=== PATIENT | female | born 1975 | race Caucasian/White ===

== ENCOUNTER → 2016-10-25 | Outpatient (CLI) | payer BC | END | disposition home or self-care (01) | LOC: LABWHC1 11:01 | PROVIDERS: ATTEND Internal Medicine Endocrinology, Diabetes & Metabolism | DX: E04.2 Nontoxic multinodular goiter (principal) | CPT/HCPCS: 36415; 84439; 84443 ==

== ENCOUNTER 2019-03-08 11:20 | Emergency (ER) | payer BC, OTHER ==
[2019-03-08 11:27] VITALS: RESP 18
[2019-03-08] MEDS ORDERED: ONDANSETRON 4 MG/2 ML VIAL IVP STA (11:39)
[2019-03-08] MEDS ORDERED: SODIUM CHLORIDE 0.9% 1,000 ML IV STA (11:39)
[2019-03-08] MEDS ORDERED: KETOROLAC 30 MG/ML 1 ML VIAL IVP STA (11:39)
--- NOTE | 2019-03-08 11:54 | ED ---
Abdominal Pain HPI - General Source: patient, family Mode of arrival: wheelchair Limitations: no limitations <Neelam Pickens - Last Filed: 03/08/19 15:31> <Kena Cruz - Last Filed: 03/11/19 02:52> - General Chief Complaint: Abdominal Pain Stated Complaint: Abd Pain Time Seen by Provider: 03/08/19 11:31 - History of Present Illness Initial Comments: Patient is a 44-year-old female presenting to the emergency Department with complaints of abdominal pain, nausea, vomiting since early this morning. Patient states she has a history of gastritis but has not had issues with her for approximately 5 years. Patient states she takes pain medication for chronic back pain. Patient states he woke up early this morning with abdominal pain as well as vomiting. Patient describes the abdominal pain as sharp and constant just below the diaphragm. Patient states this feels exactly like the last time she had a gastritis attack. Patient admits to being under increased amount of stress recently. Patient denies fever, chills, chest pain, shortness of breath, cough, urinary complaints. Upon arrival to ER. Patient is actively vomiting. Vital signs are stable, afebrile. (Neelam Pickens) - Related Data Home Medications Medication Instructions Recorded Confirmed Cephalexin [Keflex] 500 mg PO Q8HR 07/06/14 07/06/14 Methocarbamol [Robaxin] 750 mg PO QID 07/06/14 07/06/14 oxyCODONE-APAP 10-325MG [Percocet 1 each PO Q6HR PRN 07/06/14 07/06/14 10-325] Previous Rx's Medication Instructions Recorded Famotidine [Pepcid] 20 mg PO BID #30 tablet 07/06/14 Famotidine [Pepcid] 20 mg PO BID #28 tablet 10/07/14 Cephalexin [Keflex] 500 mg PO BID 7 Days #14 cap 03/08/19 Allergies Allergy/AdvReac Type Severity Reaction Status Date / Time acetaminophen [From [place]] AdvReac Nausea & Verified 03/08/19 11:22 Vomiting hydrocodone bitartrate AdvReac Nausea & Verified 03/08/19 11:22 [From [place]] Vomiting Review of Systems ROS Other: All systems not noted in ROS Statement are negative. <Neelam Pickens - Last Filed: 03/08/19 15:31> ROS Other: All systems not noted in ROS Statement are negative. <Kena Cruz - Last Filed: 03/11/19 02:52> ROS Statement: Those systems with pertinent positive or pertinent negative responses have been documented in the HPI. Past Medical History Additional Past Medical History / Comment(s): Chronic back pain, gastritis History of Any Multi-Drug Resistant Organisms: None Reported Past Surgical History: Back Surgery, Orthopedic Surgery Additional Past Surgical History / Comment(s): Neurostimulator for back pain Past Psychological History: No Psychological Hx Reported Smoking Status: Current every day smoker Past Alcohol Use History: Rare Past Drug Use History: Marijuana <Neelam Pickens - Last Filed: 03/08/19 15:31> General Exam Limitations: no limitations <Neelam Pickens - Last Filed: 03/08/19 15:31> - General Exam Comments Initial Comments: GENERAL: Well-nourished and in mild distress secondary to acute pain and vomiting. HEAD: Atraumatic, normocephalic. EYES: Pupils equal round and reactive to light, extraocular movements intact, sclera anicteric, conjunctiva are normal. ENT: TMs normal, nares patent, oropharynx clear without exudates. Moist mucous membranes. NECK: Normal range of motion, supple without lymphadenopathy or JVD. LUNGS: Breath sounds clear to auscultation bilaterally and equal. No wheezes rales or rhonchi. HEART: Regular rate and rhythm without murmurs, rubs or gallops. ABDOMEN: Tender to palpation in epigastric region. Soft, normoactive bowel sounds. No guarding, no rebound. No masses appreciated. : Deferred EXTREMITIES: Normal range of motion, no pitting or edema. No clubbing or cyanosis. NEUROLOGICAL: Cranial nerves II through XII grossly intact. Normal speech, normal gait. PSYCH: Normal mood, normal affect. SKIN: Warm, Dry, normal turgor, no rashes or lesions noted. (Neelam Pickens) Course Vital Signs 03/08/19 03/08/19 11:25 14:25 Temperature 97.6 F 98 F Pulse Rate 59 L 54 L Respiratory 18 18 Rate Blood Pressure 176/77 177/79 O2 Sat by Pulse 100 100 Oximetry Medical Decision Making - Lab Data Result diagrams: 03/08/19 11:55 03/08/19 11:55 <Neelam Pickens - Last Filed: 03/08/19 15:31> - Lab Data Result diagrams: 03/08/19 11:55 03/08/19 11:55 <Kena Cruz - Last Filed: 03/11/19 02:52> - Medical Decision Making Patient is a 44-year-old female here for epigastric pain that started early this morning. Patient has a history of gastritis and she states this feels exactly to the same as last time she had gastritis. Patient admits to being under a large amount of stress recently. Patient denies fever, chills, diarrhea, chest pain, shortness of breath, cough. Patient was actively vomiting upon arrival to ER. Vital signs are stable. On exam patient has tenderness epigastric region. CBC, CMP are within normal limits. Lactic acid is 1.6. UA does reveal large amount of WBCs and 2+ ketones. Upon questioning the patient again regarding urinary complaints she does admit to having increased in frequency the last week. Patient was given fluids, pain medication, Protonix and she reports improvement in symptoms. Patient is requesting to go home. Patient will be started on Keflex for UTI. Patient will follow up with GI for further management if symptoms persist. Return parameters were discussed with the patient she verbalized understanding. Patient is stable for discharge. Case discussed with Dr. Cruz. (Neelam Pickens) I was available for consultation in the emergency department. The history and physical exam were done by the midlevel provider. I was consulted for this patient's care. I reviewed the case midlevel provider and based on their presentation of the patient, I agree with the assessment, medical decision making and plan of care as documented. I did evaluate the patient prior to discharge and she agreed to improvement in her symptoms. Chart was dictated using [employer] software. Attempts were made to correct any dictation errors however some typographical errors may persist. (Kena Cruz) - Lab Data Lab Results 03/08/19 03/08/19 03/08/19 Range/Units 11:55 11:55 11:55 WBC (3.8-10.6) k/uL RBC (3.80-5.40) m/uL Hgb (11.4-16.0) gm/dL Hct (34.0-46.0) % MCV (80.0-100.0) fL MCH (25.0-35.0) pg MCHC (31.0-37.0) g/dL RDW (11.5-15.5) % Plt Count (150-450) k/uL Neutrophils % % Lymphocytes % % Monocytes % % Eosinophils % % Basophils % % Neutrophils # (1.3-7.7) k/uL Lymphocytes # (1.0-4.8) k/uL Monocytes # (0-1.0) k/uL Eosinophils # (0-0.7) k/uL Basophils # (0-0.2) k/uL Sodium 140 (137-145) mmol/L Potassium 4.2 (3.5-5.1) mmol/L Chloride 106 (98-107) mmol/L Carbon Dioxide 22 (22-30) mmol/L Anion Gap 12 mmol/L BUN 14 (7-17) mg/dL Creatinine 0.65 (0.52-1.04) mg/dL Est GFR (CKD-EPI)AfAm >90 (>60 ml/min/1.73 sqM) Est GFR (CKD-EPI)NonAf >90 (>60 ml/min/1.73 sqM) Glucose 144 H (74-99) mg/dL Plasma Lactic Acid [place] 1.6 (0.7-2.0) mmol/L Calcium 9.3 (8.4-10.2) mg/dL Total Bilirubin 0.7 (0.2-1.3) mg/dL AST 18 (14-36) U/L ALT 17 (9-52) U/L Alkaline Phosphatase 48 (38-126) U/L Total Protein 7.3 (6.3-8.2) g/dL Albumin 4.4 (3.5-5.0) g/dL Amylase 54 (30-110) U/L Lipase 41 (23-300) U/L Urine Color Yellow Urine Appearance Cloudy H (Clear) Urine pH 7.5 (5.0-8.0) Ur Specific [place] 1.015 (1.001-1.035) Urine Protein Trace H (Negative) Urine Glucose (UA) Negative (Negative) Urine Ketones 2+ H (Negative) Urine Blood Trace H (Negative) Urine Nitrite Negative (Negative) Urine Bilirubin Negative (Negative) Urine Urobilinogen <2.0 (<2.0) mg/dL Ur Leukocyte Esterase Large H (Negative) Urine RBC 3 (0-5) /hpf Urine WBC >182 H (0-5) /hpf Ur Squamous Epith Cells 1 (0-4) /hpf Urine Bacteria Rare H (None) /hpf Urine Mucus Few H (None) /hpf Urine HCG, Qual (Not Detectd) 03/08/19 03/08/19 Range/Units 11:55 11:55 WBC 9.5 (3.8-10.6) k/uL RBC 3.89 (3.80-5.40) m/uL Hgb 11.9 (11.4-16.0) gm/dL Hct 36.3 (34.0-46.0) % MCV 93.1 (80.0-100.0) fL MCH 30.6 (25.0-35.0) pg MCHC 32.8 (31.0-37.0) g/dL RDW 14.7 (11.5-15.5) % Plt Count 215 (150-450) k/uL Neutrophils % 89 % Lymphocytes % 7 % Monocytes % 2 % Eosinophils % 1 % Basophils % 0 % Neutrophils # 8.5 H (1.3-7.7) k/uL Lymphocytes # 0.7 L (1.0-4.8) k/uL Monocytes # 0.2 (0-1.0) k/uL Eosinophils # 0.1 (0-0.7) k/uL Basophils # 0.0 (0-0.2) k/uL Sodium (137-145) mmol/L Potassium (3.5-5.1) mmol/L Chloride (98-107) mmol/L Carbon Dioxide (22-30) mmol/L Anion Gap mmol/L BUN (7-17) mg/dL Creatinine (0.52-1.04) mg/dL Est GFR (CKD-EPI)AfAm (>60 ml/min/1.73 sqM) Est GFR (CKD-EPI)NonAf (>60 ml/min/1.73 sqM) Glucose (74-99) mg/dL Plasma Lactic Acid [place] (0.7-2.0) mmol/L Calcium (8.4-10.2) mg/dL Total Bilirubin (0.2-1.3) mg/dL AST (14-36) U/L ALT (9-52) U/L Alkaline Phosphatase (38-126) U/L Total Protein (6.3-8.2) g/dL Albumin (3.5-5.0) g/dL Amylase (30-110) U/L Lipase (23-300) U/L Urine Color Urine Appearance (Clear) Urine pH (5.0-8.0) Ur Specific [place] (1.001-1.035) Urine Protein (Negative) Urine Glucose (UA) (Negative) Urine Ketones (Negative) Urine Blood (Negative) Urine Nitrite (Negative) Urine Bilirubin (Negative) Urine Urobilinogen (<2.0) mg/dL Ur Leukocyte Esterase (Negative) Urine RBC (0-5) /hpf Urine WBC (0-5) /hpf Ur Squamous Epith Cells (0-4) /hpf Urine Bacteria (None) /hpf Urine Mucus (None) /hpf Urine HCG, Qual Not Detected (Not Detectd) Disposition Is patient prescribed a controlled substance at d/c from ED?: No <Neelam Pickens - Last Filed: 03/08/19 15:31> <Kena Cruz - Last Filed: 03/11/19 02:52> Clinical Impression: Abdominal pain, Gastritis, Vomiting, UTI (urinary tract infection) Disposition: HOME SELF-CARE Condition: Stable Instructions (If sedation given, give patient instructions): Abdominal Pain (ED) Additional Instructions: Please return to the Emergency Department if symptoms worsen or any other concerns. with an acid in Zofran as needed. Take antibiotics as discussed for UTI. Follow-up with GI if symptoms persist. Prescriptions: Cephalexin [Keflex] 500 mg PO BID 7 Days #14 cap Referrals: None,Stated [Primary Care Provider] - 1-2 days
[2019-03-08] MEDS ORDERED: PANTOPRAZOLE 40 MG/10 ML VIAL IVP STA (12:18)
[2019-03-08] MEDS ORDERED: MAG HYDROX/AL HYDROX/SIMETH 30 ML, HYOSCYAMINE ELIXIR 10 ML, CIMETIDINE HCL 300 MG, LID... PO STA ×4 (12:18)
[2019-03-08 12:23] LABS: Basophils % (A) 0 %; Eosinophils # (A) 0.1 k/uL (0-0.7); Eosinophils % (A) 1 %; HCT 36.3 % (34.0-46.0); HGB 11.9 gm/dL (11.4-16.0); Lymphocytes # (A) 0.7 k/uL (1.0-4.8); Lymphocytes % (A) 7 %; MCH 30.6 pg (25.0-35.0); MCHC 32.8 g/dL (31.0-37.0); MCV 93.1 fL (80.0-100.0); Mean Platelet Volume 9.3; Monocytes # (A) 0.2 k/uL (0-1.0); Monocytes % (A) 2 %; Neutrophils # (A) 8.5 k/uL (1.3-7.7); Neutrophils % (A) 89 %; Platelet Count 215 k/uL (150-450); RBC 3.89 m/uL (3.80-5.40); RDW 14.7 % (11.5-15.5); WBC 9.5 k/uL (3.8-10.6)
[2019-03-08 12:29] LABS: Appearance,Urine Cloudy (Clear); Bacteria,Urine Rare /hpf; Bilirubin,Urine Negative (Negative); Blood,Urine Trace (Negative); Color,Urine Yellow; Glucose,Urine (UA) Negative (Negative); Ketones,Urine 2+ (Negative); Leukocyte Esterase,Urine Large (Negative); Mucus,Urine Few /hpf; Nitrite,Urine Negative (Negative); PH, Urine 7.5 (5.0-8.0); Protein,Urine Trace (Negative); RBC,Urine 3 /hpf (0-5); Specific Gravity,Urine 1.015 (1.001-1.035); Squamous Epithelial Cell,Urine 1 /hpf (0-4); Urobilinogen,Urine <2.0 mg/dL (<2.0)
[2019-03-08 12:32] LABS: ALT 17 U/L (9-52); AST 18 U/L (14-36); African American GFR (CKD) >90 (>60 ml/min/1.73 sqM); Albumin 4.4 g/dL (3.5-5.0); Alkaline Phosphatase 48 U/L (38-126); Amylase 54 U/L (30-110); Anion Gap 12 mmol/L; Blood Urea Nitrogen 14 mg/dL (7-17); Calcium 9.3 mg/dL (8.4-10.2); Carbon Dioxide 22 mmol/L (22-30); Chloride 106 mmol/L (98-107); Glucose 144 mg/dL (74-99); Potassium 4.2 mmol/L (3.5-5.1); Sodium 140 mmol/L (137-145); Total Bilirubin 0.7 mg/dL (0.2-1.3); Total Protein 7.3 g/dL (6.3-8.2)
[2019-03-08] MEDS ORDERED: MORPHINE SULFATE 4 MG/ML SYRINGE IVP STA (12:53)
[2019-03-08 14:26] VITALS: BP 177/79; PULSE 54; TEMP 98
== END 2019-03-08 14:26 | disposition home or self-care (01) ==
LOC: EC 11:20
DX: N39.0 Urinary tract infection, site not specified (principal); K29.70 Gastritis, unspecified, without bleeding; F17.200 Nicotine dependence, unspecified, uncomplicated; Z79.899 Other long term (current) drug therapy; Z88.5 Allergy status to narcotic agent; Z88.6 Allergy status to analgesic agent
CPT/HCPCS: 36415; 80053; 82150; 83605; 83690; 85025; 81001; 81025; 87086; 99284; 96374; 96375 ×3; 96361; J2270; J2405; J1885; C9113

== ENCOUNTER 2019-06-23 09:31 | Emergency (ER) | payer OTHER ==
[2019-06-23 09:52] VITALS: BP 157/67; PULSE 81; RESP 18; TEMP 97.8
[2019-06-23] MEDS ORDERED: SODIUM CHLORIDE 0.9% 1,000 ML IV STA (10:07)
[2019-06-23] MEDS ORDERED: ONDANSETRON 4 MG/2 ML VIAL IVP STA ×2 (10:07→11:59)
[2019-06-23] MEDS ORDERED: MORPHINE SULFATE 4 MG/ML SYRINGE IV STA (10:07)
[2019-06-23] MEDS ORDERED: PANTOPRAZOLE 40 MG/10 ML VIAL IVP STA (10:07)
[2019-06-23] MEDS ORDERED: MAG HYDROX/AL HYDROX/SIMETH 30 ML, HYOSCYAMINE ELIXIR 10 ML, LIDOCAINE VISCOUS 2% 10 ML PO STA ×3 (10:09)
--- NOTE | 2019-06-23 10:20 | ED ---
Abdominal Pain HPI - General Chief Complaint: Abdominal Pain Stated Complaint: abdominal pain Time Seen by Provider: 06/23/19 09:54 Source: patient Mode of arrival: ambulatory Limitations: no limitations - History of Present Illness Initial Comments: patient is a 44-year-old female presenting to emergency Department with complaints of abdominal pain this started yesterday. Patient is complaining of nausea, vomiting and severe epigastric pain. Patient states she has had this kind of pain before and has a history of gastritis. she describes the pain as sharp and consistent. No radiation. Patient states she will have her insurance back after the first year and plans to have surgery to correct this. Patient was in the ER in February for same complaint.she only has these attacks once or twice a year. Patient denies fever or chills. She does have mild diarrhea. Patient denies chest pain or shortness of breath. Patient has no other complain ts at this time. Upon arrival to the ER, patient has been vomiting in her room, vital signs are stable. - Related Data Home Medications Medication Instructions Recorded Confirmed Ibuprofen 800 mg PO TID 06/23/19 06/23/19 Allergies Allergy/AdvReac Type Severity Reaction Status Date / Time acetaminophen [From [place]] AdvReac Nausea & Verified 03/08/19 11:22 Vomiting hydrocodone bitartrate AdvReac Nausea & Verified 03/08/19 11:22 [From [place]] Vomiting Review of Systems ROS Statement: Those systems with pertinent positive or pertinent negative responses have been documented in the HPI. ROS Other: All systems not noted in ROS Statement are negative. Past Medical History Additional Past Medical History / Comment(s): Chronic back pain, gastritis History of Any Multi-Drug Resistant Organisms: None Reported Past Surgical History: Back Surgery, Orthopedic Surgery Additional Past Surgical History / Comment(s): Neurostimulator for back pain Past Psychological History: No Psychological Hx Reported Smoking Status: Current every day smoker Past Alcohol Use History: Rare Past Drug Use History: Marijuana General Exam - General Exam Comments Initial Comments: GENERAL: Well-appearing, well-nourished and in mild distress secondary to abdominal pain and vomiting. HEAD: Atraumatic, normocephalic. EYES: Pupils equal round and reactive to light, extraocular movements intact, sclera anicteric, conjunctiva are normal. ENT: Nares patent, oropharynx clear without exudates. Moist mucous membranes. NECK: Normal range of motion, supple without lymphadenopathy or JVD. LUNGS: Breath sounds clear to auscultation bilaterally and equal. No wheezes rales or rhonchi. HEART: Regular rate and rhythm without murmurs, rubs or gallops. ABDOMEN: tender to palpation epigastric region and suprapubic. Soft, normoactive bowel sounds. No guarding, no rebound. No masses appreciated. : Deferred EXTREMITIES: Normal range of motion, no pitting or edema. No clubbing or cyanosis. NEUROLOGICAL: Normal speech, normal gait. PSYCH: Normal mood, normal affect. SKIN: Warm, Dry, normal turgor, no rashes or lesions noted. Limitations: no limitations Course Vital Signs 06/23/19 09:49 Temperature 97.8 F Pulse Rate 81 Respiratory 18 Rate Blood Pressure 157/67 O2 Sat by Pulse 100 Oximetry Medical Decision Making - Medical Decision Making she is a 44-year-old female presenting with epigastric pain that started yesterday. Patient has history of gastritis and has had this pain before. Laboratory shows leukocytosis at 16.9 with left shift. UA shows to be PVCs of 19 with small amount of blood. Given the leukocytosis and continued pain, a CT was ordered. CT showed mild to moderate left-sided hydro-nephrosis secondary to a large left UPJ calculus measuring 1.40.6 cm. I discussed these findings with the patient. Patient is feeling better after fluids, nausea meds and pain meds. Patient was given 1 g of Rocephin before discharge. She will continue with Keflex outpatient. Patient will follow up with her PCP. Patient is agreement this plan of care. Return parameters were discussed with the patient she v erbalized understanding. Case discussed with Dr. Nash. - Lab Data Result diagrams: 06/23/19 10:24 06/23/19 10:24 Lab Results 06/23/19 06/23/19 06/23/19 Range/Units 10:24 10:24 10:24 WBC 16.9 H (3.8-10.6) k/uL RBC 4.14 (3.80-5.40) m/uL Hgb 12.6 (11.4-16.0) gm/dL Hct 38.4 (34.0-46.0) % MCV 92.7 (80.0-100.0) fL MCH 30.5 (25.0-35.0) pg MCHC 32.9 (31.0-37.0) g/dL RDW 13.2 (11.5-15.5) % Plt Count 178 (150-450) k/uL Neutrophils % 93 % Lymphocytes % 4 % Monocytes % 1 % Eosinophils % 1 % Basophils % 0 % Neutrophils # 15.7 H (1.3-7.7) k/uL Lymphocytes # 0.7 L (1.0-4.8) k/uL Monocytes # 0.2 (0-1.0) k/uL Eosinophils # 0.2 (0-0.7) k/uL Basophils # 0.0 (0-0.2) k/uL PT 11.4 (9.0-12.0) sec INR 1.1 (<1.2) APTT 23.3 (22.0-30.0) sec Sodium 140 (137-145) mmol/L Potassium 4.2 (3.5-5.1) mmol/L Chloride 108 H (98-107) mmol/L Carbon Dioxide 23 (22-30) mmol/L Anion Gap 9 mmol/L BUN 18 H (7-17) mg/dL Creatinine 0.63 (0.52-1.04) mg/dL Est GFR (CKD-EPI)AfAm >90 (>60 ml/min/1.73 sqM) Est GFR (CKD-EPI)NonAf >90 (>60 ml/min/1.73 sqM) Glucose 143 H (74-99) mg/dL Calcium 9.4 (8.4-10.2) mg/dL Total Bilirubin 0.8 (0.2-1.3) mg/dL AST 20 (14-36) U/L ALT 15 (4-34) U/L Alkaline Phosphatase 47 (38-126) U/L Total Protein 7.3 (6.3-8.2) g/dL Albumin 4.4 (3.5-5.0) g/dL Amylase 44 (30-110) U/L Lipase 27 (23-300) U/L Urine Color Urine Appearance (Clear) Urine pH (5.0-8.0) Ur Specific [place] (1.001-1.035) Urine Protein (Negative) Urine Glucose (UA) (Negative) Urine Ketones (Negative) Urine Blood (Negative) Urine Nitrite (Negative) Urine Bilirubin (Negative) Urine Urobilinogen (<2.0) mg/dL Ur Leukocyte Esterase (Negative) Urine RBC (0-5) /hpf Urine WBC (0-5) /hpf Ur Squamous Epith Cells (0-4) /hpf Urine Bacteria (None) /hpf Hyaline Casts (0-2) /lpf Urine Mucus (None) /hpf Urine HCG, Qual (Not Detectd) 06/23/19 06/23/19 Range/Units 11:25 11:25 WBC (3.8-10.6) k/uL RBC (3.80-5.40) m/uL Hgb (11.4-16.0) gm/dL Hct (34.0-46.0) % MCV (80.0-100.0) fL MCH (25.0-35.0) pg MCHC (31.0-37.0) g/dL RDW (11.5-15.5) % Plt Count (150-450) k/uL Neutrophils % % Lymphocytes % % Monocytes % % Eosinophils % % Basophils % % Neutrophils # (1.3-7.7) k/uL Lymphocytes # (1.0-4.8) k/uL Monocytes # (0-1.0) k/uL Eosinophils # (0-0.7) k/uL Basophils # (0-0.2) k/uL PT (9.0-12.0) sec INR (<1.2) APTT (22.0-30.0) sec Sodium (137-145) mmol/L Potassium (3.5-5.1) mmol/L Chloride (98-107) mmol/L Carbon Dioxide (22-30) mmol/L Anion Gap mmol/L BUN (7-17) mg/dL Creatinine (0.52-1.04) mg/dL Est GFR (CKD-EPI)AfAm (>60 ml/min/1.73 sqM) Est GFR (CKD-EPI)NonAf (>60 ml/min/1.73 sqM) Glucose (74-99) mg/dL Calcium (8.4-10.2) mg/dL Total Bilirubin (0.2-1.3) mg/dL AST (14-36) U/L ALT (4-34) U/L Alkaline Phosphatase (38-126) U/L Total Protein (6.3-8.2) g/dL Albumin (3.5-5.0) g/dL Amylase (30-110) U/L Lipase (23-300) U/L Urine Color Yellow Urine Appearance Clear (Clear) Urine pH 7.0 (5.0-8.0) Ur Specific [place] 1.020 (1.001-1.035) Urine Protein 1+ H (Negative) Urine Glucose (UA) Negative (Negative) Urine Ketones Trace H (Negative) Urine Blood Negative (Negative) Urine Nitrite Negative (Negative) Urine Bilirubin Negative (Negative) Urine Urobilinogen <2.0 (<2.0) mg/dL Ur Leukocyte Esterase Small H (Negative) Urine RBC 11 H (0-5) /hpf Urine WBC 19 H (0-5) /hpf Ur Squamous Epith Cells <1 (0-4) /hpf Urine Bacteria Moderate H (None) /hpf Hyaline Casts 1 (0-2) /lpf Urine Mucus Moderate H (None) /hpf Urine HCG, Qual Not Detected (Not Detectd) Disposition Clinical Impression: Gastritis, Renal calculus, left Disposition: HOME SELF-CARE Condition: Stable Instructions (If sedation given, give patient instructions): Kidney Stones (ED) Additional Instructions: Please return to the Emergency Department if symptoms worsen or any other concerns. Take antibiotics as prescribed. Is patient prescribed a controlled substance at d/c from ED?: No Referrals: Clark Goncalves MD [Primary Care Provider] - 1-2 days
[2019-06-23 10:39] LABS: Basophils % (A) 0 %; Eosinophils # (A) 0.2 k/uL (0-0.7); Eosinophils % (A) 1 %; HCT 38.4 % (34.0-46.0); HGB 12.6 gm/dL (11.4-16.0); Lymphocytes # (A) 0.7 k/uL (1.0-4.8); Lymphocytes % (A) 4 %; MCH 30.5 pg (25.0-35.0); MCHC 32.9 g/dL (31.0-37.0); MCV 92.7 fL (80.0-100.0); Mean Platelet Volume 10.1; Monocytes # (A) 0.2 k/uL (0-1.0); Monocytes % (A) 1 %; Neutrophils # (A) 15.7 k/uL (1.3-7.7); Neutrophils % (A) 93 %; Platelet Count 178 k/uL (150-450); RBC 4.14 m/uL (3.80-5.40); RDW 13.2 % (11.5-15.5); WBC 16.9 k/uL (3.8-10.6)
[2019-06-23 11:00] LABS: ALT 15 U/L (4-34); AST 20 U/L (14-36); African American GFR (CKD) >90 (>60 ml/min/1.73 sqM); Albumin 4.4 g/dL (3.5-5.0); Alkaline Phosphatase 47 U/L (38-126); Amylase 44 U/L (30-110); Anion Gap 9 mmol/L; Blood Urea Nitrogen 18 mg/dL (7-17); Calcium 9.4 mg/dL (8.4-10.2); Carbon Dioxide 23 mmol/L (22-30); Chloride 108 mmol/L (98-107); Glucose 143 mg/dL (74-99); Non-African American GFR(CKD) >90 (>60 ml/min/1.73 sqM); Potassium 4.2 mmol/L (3.5-5.1); Sodium 140 mmol/L (137-145); Total Bilirubin 0.8 mg/dL (0.2-1.3); Total Protein 7.3 g/dL (6.3-8.2)
[2019-06-23 11:16] LABS: INR 1.1 (<1.2); Partial Thromboplastin Time 23.3 sec (22.0-30.0); Prothrombin Time 11.4 sec (9.0-12.0)
--- NOTE | 2019-06-23 12:08 | CT ---
EXAMINATION TYPE: CT abdomen pelvis w con DATE OF EXAM: 06/23/2019 COMPARISON: HISTORY: Abdominal pain CT DLP: 535.3 mGycm CONTRAST: CT scan of the abdomen and pelvis is performed without Oral Contrast and with IV Contrast, patient in jected with 100 ml mL of Isovue 300. FINDINGS: LUNG BASES-: No visible nodule. No infiltrate. LIVER/GB: No calcified gallstones. No space occupying hepatic lesion. Biliary tree is of normal ca liber. PANCREAS: No inflammation. No distinct mass. SPLEEN: No splenic enlargement. No lesion seen. ADRENALS: No nodule. No thickening. KIDNEYS/BLADDER: Mild to moderate left-sided hydroureteronephrosis secondary to a large calculus at t he left UVJ measuring 1.4 cm in length by 6 mm in width. No additional calculi identified at this jada e. No renal mass is detected. BOWEL: Normal appendix. Normal bowel caliber. No inflammation. GENITAL ORGANS: No gross abnormality. LYMPH NODES: No greater than 1cm abdominal or pelvic lymph nodes are appreciated. AORTA: No significant abnormality. OSSEOUS STRUCTURES: No significant abnormality is seen. OTHER: No significant additional abnormality is seen. IMPRESSION: 1. [id number] left-sided hydroureteronephrosis secondary to a large left UPJ calculus measuring 1.4 x 0.6 cm.
[2019-06-23 12:22] LABS: Appearance,Urine Clear (Clear); Bacteria,Urine Moderate /hpf; Bilirubin,Urine Negative (Negative); Blood,Urine Negative (Negative); Color,Urine Yellow; Glucose,Urine (UA) Negative (Negative); Hyaline Casts,Urine 1 /lpf (0-2); Ketones,Urine Trace (Negative); Leukocyte Esterase,Urine Small (Negative); Mucus,Urine Moderate /hpf; Nitrite,Urine Negative (Negative); Protein,Urine 1+ (Negative); RBC,Urine 11 /hpf (0-5); Squamous Epithelial Cell,Urine <1 /hpf (0-4); Urobilinogen,Urine <2.0 mg/dL (<2.0); WBC,Urine 19 /hpf (0-5)
[2019-06-23] MEDS ORDERED: cefTRIAXone IN SWFI 1,000 MG/10 ML SYRINGE IVP STA (12:33)
[2019-06-23] MEDS ORDERED: ACET/COD 300 MG/30 MG STARTER PACK 6 TAB BTL PO STA (12:34)
== END 2019-06-23 12:50 | disposition home or self-care (01) ==
LOC: EC 09:31
DX: K29.70 Gastritis, unspecified, without bleeding (principal); N13.2 Hydronephrosis with renal and ureteral calculous obstruction; D72.829 Elevated white blood cell count, unspecified; F17.200 Nicotine dependence, unspecified, uncomplicated; Z79.1 Long term (current) use of non-steroidal anti-inflammatories (NSAID); Z88.5 Allergy status to narcotic agent; Z88.6 Allergy status to analgesic agent
CPT/HCPCS: 36415; 80053; 82150; 83690; 85025; 85610; 85730; 81001; 81025; 87086; 74177; 99284; 96374; 96375 ×3; 96376; 96361 ×2; J2270; J2405; J0696; C9113; Q9967

== ENCOUNTER 2019-08-06 10:09 | Emergency (ER) | payer SELFPAY ==
[2019-08-06 10:23] VITALS: RESP 16; TEMP 97.4
[2019-08-06 11:32] LABS: Basophils % (A) 0 %; Eosinophils # (A) 0.1 k/uL (0-0.7); Eosinophils % (A) 0 %; Lymphocytes # (A) 0.9 k/uL (1.0-4.8); Lymphocytes % (A) 7 %; MCHC 31.7 g/dL (31.0-37.0); MCV 94.6 fL (80.0-100.0); Monocytes # (A) 0.2 k/uL (0-1.0); Monocytes % (A) 2 %; Neutrophils # (A) 10.8 k/uL (1.3-7.7); Neutrophils % (A) 90 %; Platelet Count 215 k/uL (150-450); RBC 4.34 m/uL (3.80-5.40)
[2019-08-06 11:44] LABS: ALT 13 U/L (4-34); AST 25 U/L (14-36); African American GFR (CKD) >90 (>60 ml/min/1.73 sqM); Albumin 4.4 g/dL (3.5-5.0); Alkaline Phosphatase 55 U/L (38-126); Amylase 60 U/L (30-110); Anion Gap 8 mmol/L; Blood Urea Nitrogen 17 mg/dL (7-17); Calcium 8.9 mg/dL (8.4-10.2); Carbon Dioxide 23 mmol/L (22-30); Chloride 107 mmol/L (98-107); Glucose 127 mg/dL (74-99); Non-African American GFR(CKD) >90 (>60 ml/min/1.73 sqM); Potassium 4.3 mmol/L (3.5-5.1); Sodium 138 mmol/L (137-145); Total Bilirubin 0.7 mg/dL (0.2-1.3); Total Protein 7.1 g/dL (6.3-8.2)
[2019-08-06 11:52] LABS: Appearance,Urine Cloudy (Clear); Bacteria,Urine Rare /hpf; Bilirubin,Urine Negative (Negative); Blood,Urine Moderate (Negative); Color,Urine Yellow; Glucose,Urine (UA) Negative (Negative); Ketones,Urine 1+ (Negative); Leukocyte Esterase,Urine Trace (Negative); Mucus,Urine Rare /hpf; Nitrite,Urine Negative (Negative); Protein,Urine 1+ (Negative); RBC,Urine 82 /hpf (0-5); Specific Gravity,Urine 1.019 (1.001-1.035); Squamous Epithelial Cell,Urine 9 /hpf (0-4); Urobilinogen,Urine <2.0 mg/dL (<2.0); WBC,Urine 8 /hpf (0-5)
[2019-08-06] MEDS ORDERED: ONDANSETRON 4 MG/2 ML VIAL IVP STA (12:01)
[2019-08-06] MEDS ORDERED: PANTOPRAZOLE 40 MG/10 ML VIAL IVP STA (12:02)
[2019-08-06] MEDS ORDERED: MORPHINE SULFATE 4 MG/ML SYRINGE IVP STA (12:03)
[2019-08-06] MEDS ORDERED: SODIUM CHLORIDE 0.9% 1,000 ML IV ONE (12:31)
--- NOTE | 2019-08-06 12:33 | ED ---
Abdominal Pain HPI - General Chief Complaint: Abdominal Pain Stated Complaint: Vomiting, abd pain Time Seen by Provider: 08/06/19 11:46 Source: patient, RN notes reviewed, old records reviewed Mode of arrival: wheelchair Limitations: no limitations - History of Present Illness Initial Comments: 44 year old female presents today for concerns for abdominal pain. Some gastritis nausea and vomiting. She states she's also had kidney stones. Patient reports she was diagnosed with large kidney stone but believes that she passed it already.She reports she will occasionallly get pain over left flank and left side. Recently she started having nausea nd vomiting for the past 3 days. - Related Data Home Medications Medication Instructions Recorded Confirmed Ibuprofen 800 mg PO TID 06/23/19 06/23/19 Previous Rx's Medication Instructions Recorded Ketorolac [Toradol] 10 mg PO TID #12 tab 08/06/19 Ondansetron [Zofran] 4 mg PO Q8HR PRN #8 tab 08/06/19 Pantoprazole Sodium [Protonix] 40 mg PO DAILY #40 tablet. 08/06/19 Tamsulosin HCl [Flomax] 0.4 mg PO DAILY #7 capsule 08/06/19 Allergies Allergy/AdvReac Type Severity Reaction Status Date / Time acetaminophen [From [place]] AdvReac Nausea & Verified 08/06/19 10:23 Vomiting hydrocodone bitartrate AdvReac Nausea & Verified 08/06/19 10:23 [From [place]] Vomiting Review of Systems ROS Statement: Those systems with pertinent positive or pertinent negative responses have been documented in the HPI. ROS Other: All systems not noted in ROS Statement are negative. Past Medical History Additional Past Medical History / Comment(s): Chronic back pain, gastritis History of Any Multi-Drug Resistant Organisms: None Reported Past Surgical History: Back Surgery, Orthopedic Surgery Additional Past Surgical History / Comment(s): Neurostimulator for back pain Past Psychological History: No Psychological Hx Reported Smoking Status: Current every day smoker Past Alcohol Use History: Rare Past Drug Use History: Marijuana General Exam - General Exam Comments Initial Comments: 44 year old female no distress. Limitations: no limitations General appearance: alert, in no apparent distress Head exam: Present: atraumatic, normocephalic, normal inspection Eye exam: Present: normal appearance, PERRL, EOMI. Absent: scleral icterus, c onjunctival injection, periorbital swelling ENT exam: Present: normal exam, mucous membranes moist Neck exam: Present: normal inspection. Absent: tenderness, meningismus, lymphadenopathy Respiratory exam: Present: normal lung sounds bilaterally. Absent: respiratory distress, wheezes, rales, rhonchi, stridor Cardiovascular Exam: Present: regular rate, normal rhythm, normal heart sounds. Absent: systolic murmur, diastolic murmur, rubs, gallop, clicks GI/Abdominal exam: Present: soft, tenderness (epigastric and LLQ tenderness), normal bowel sounds. Absent: distended, guarding, rebound, rigid Extremities exam: Present: normal inspection, full ROM, normal capillary refill. Absent: tenderness, pedal edema, joint swelling, calf tenderness Back exam: Present: normal inspection Neurological exam: Present: alert, oriented X3, CN II-XII intact Psychiatric exam: Present: normal affect, normal mood Skin exam: Present: warm, dry, intact, normal color. Absent: rash Course Vital Signs 08/06/19 08/06/19 10:21 13:59 Temperature 97.4 F L 97.4 F L Pulse Rate 56 L 64 Respiratory 16 16 Rate Blood Pressure 162/70 145/71 O2 Sat by Pulse 100 100 Oximetry Medical Decision Making - Medical Decision Making 44 year old femael with nausea vomiting, left abdominal pain and concern for gastritis. Patient labs were reviewed and CBC and CMP are unremarkable. PAtient UA shows significant hematuria. Discussed concern for another kidney stone. Patient KUB shows stone in Left UVJ. Same size of the stone from last ER visit in June. She likely has not passed the stone. Discussed at this time she needs prompt urology follow up, as she will need surgery for stone removal. Disucssed no sign of infection or compromised kidney function. Patient understands treatment plan and will comply. - Lab Data Result diagrams: 08/06/19 11:03 08/06/19 11:03 Lab Results 08/06/19 08/06/19 08/06/19 Range/Units 11:03 11:03 11:03 WBC 12.0 H (3.8-10.6) k/uL RBC 4.34 (3.80-5.40) m/uL Hgb 13.0 (11.4-16.0) gm/dL Hct 41.0 (34.0-46.0) % MCV 94.6 (80.0-100.0) fL MCH 30.0 (25.0-35.0) pg MCHC 31.7 (31.0-37.0) g/dL RDW 13.0 (11.5-15.5) % Plt Count 215 (150-450) k/uL Neutrophils % 90 % Lymphocytes % 7 % Monocytes % 2 % Eosinophils % 0 % Basophils % 0 % Neutrophils # 10.8 H (1.3-7.7) k/uL Lymphocytes # 0.9 L (1.0-4.8) k/uL Monocytes # 0.2 (0-1.0) k/uL Eosinophils # 0.1 (0-0.7) k/uL Basophils # 0.0 (0-0.2) k/uL Sodium 138 (137-145) mmol/L Potassium 4.3 (3.5-5.1) mmol/L Chloride 107 (98-107) mmol/L Carbon Dioxide 23 (22-30) mmol/L Anion Gap 8 mmol/L BUN 17 (7-17) mg/dL Creatinine 0.55 (0.52-1.04) mg/dL Est GFR (CKD-EPI)AfAm >90 (>60 ml/min/1.73 sqM) Est GFR (CKD-EPI)NonAf >90 (>60 ml/min/1.73 sqM) Glucose 127 H (74-99) mg/dL Calcium 8.9 (8.4-10.2) mg/dL Total Bilirubin 0.7 (0.2-1.3) mg/dL AST 25 (14-36) U/L ALT 13 (4-34) U/L Alkaline Phosphatase 55 (38-126) U/L Troponin I (0.000-0.034) ng/mL Total Protein 7.1 (6.3-8.2) g/dL Albumin 4.4 (3.5-5.0) g/dL Amylase 60 (30-110) U/L Lipase 113 (23-300) U/L Urine Color Yellow Urine Appearance Cloudy H (Clear) Urine pH 8.0 (5.0-8.0) Ur Specific [place] 1.019 (1.001-1.035) Urine Protein 1+ H (Negative) Urine Glucose (UA) Negative (Negative) Urine Ketones 1+ H (Negative) Urine Blood Moderate H (Negative) Urine Nitrite Negative (Negative) Urine Bilirubin Negative (Negative) Urine Urobilinogen <2.0 (<2.0) mg/dL Ur Leukocyte Esterase Trace H (Negative) Urine RBC 82 H (0-5) /hpf Urine WBC 8 H (0-5) /hpf Ur Squamous Epith Cells 9 H (0-4) /hpf Urine Bacteria Rare H (None) /hpf Urine Mucus Rare H (None) /hpf 08/06/19 Range/Units 11:03 WBC (3.8-10.6) k/uL RBC (3.80-5.40) m/uL Hgb (11.4-16.0) gm/dL Hct (34.0-46.0) % MCV (80.0-100.0) fL MCH (25.0-35.0) pg MCHC (31.0-37.0) g/dL RDW (11.5-15.5) % Plt Count (150-450) k/uL Neutrophils % % Lymphocytes % % Monocytes % % Eosinophils % % Basophils % % Neutrophils # (1.3-7.7) k/uL Lymphocytes # (1.0-4.8) k/uL Monocytes # (0-1.0) k/uL Eosinophils # (0-0.7) k/uL Basophils # (0-0.2) k/uL Sodium (137-145) mmol/L Potassium (3.5-5.1) mmol/L Chloride (98-107) mmol/L Carbon Dioxide (22-30) mmol/L Anion Gap mmol/L BUN (7-17) mg/dL Creatinine (0.52-1.04) mg/dL Est GFR (CKD-EPI)AfAm (>60 ml/min/1.73 sqM) Est GFR (CKD-EPI)NonAf (>60 ml/min/1.73 sqM) Glucose (74-99) mg/dL Calcium (8.4-10.2) mg/dL Total Bilirubin (0.2-1.3) mg/dL AST (14-36) U/L ALT (4-34) U/L Alkaline Phosphatase (38-126) U/L Troponin I <0.012 (0.000-0.034) ng/mL Total Protein (6.3-8.2) g/dL Albumin (3.5-5.0) g/dL Amylase (30-110) U/L Lipase (23-300) U/L Urine Color Urine Appearance (Clear) Urine pH (5.0-8.0) Ur Specific [place] (1.001-1.035) Urine Protein (Negative) Urine Glucose (UA) (Negative) Urine Ketones (Negative) Urine Blood (Negative) Urine Nitrite (Negative) Urine Bilirubin (Negative) Urine Urobilinogen (<2.0) mg/dL Ur Leukocyte Esterase (Negative) Urine RBC (0-5) /hpf Urine WBC (0-5) /hpf Ur Squamous Epith Cells (0-4) /hpf Urine Bacteria (None) /hpf Urine Mucus (None) /hpf - Radiology Data Radiology results: report reviewed An elongated 1.3 by 0.4cm calculus in left lower pelvis in distal left ureter. Disposition Clinical Impression: Left ureteral stone, Nausea & vomiting, Gastritis Disposition: HOME SELF-CARE Condition: Good Instructions (If sedation given, give patient instructions): Gastritis (ED), Ureteral Stones (ED) Additional Instructions: Patient has a follow-up with urologist. Following up with primary care physician as well. Return to emergency department if any alarming signs or symptoms occur. Prescriptions: Tamsulosin HCl [Flomax] 0.4 mg PO DAILY #7 capsule Pantoprazole Sodium [Protonix] 40 mg PO DAILY #40 tablet.dr Ketorolac [Toradol] 10 mg PO TID #12 tab Ondansetron [Zofran] 4 mg PO Q8HR PRN #8 tab PRN Reason: Nausea And Vomiting Is patient prescribed a controlled substance at d/c from ED?: No Referrals: Clark Goncalves MD [Primary Care Provider] - 1-2 days Kunal Durbin MD [STAFF PHYSICIAN] - 1-2 days Time of Disposition: 13:30
--- NOTE | 2019-08-06 12:34 | XR ---
EXAMINATION TYPE: XR KUB DATE OF EXAM: 08/06/2019 CLINICAL DATA: 44-year-old female with pain, H COMPARISON: 10/07/2014 FINDINGS: Generator device at the left mid abdomen with leads extending up beyond the [id number] along the s santi canal. L5-S1 fusion hardware demonstrated. No dilated small bowel or air-fluid levels. An elongated calcification in the lower left side of the pelvis measuring 1.3 x 0.4 cm. No evidence for free intraperitoneal air. IMPRESSION: An elongated 1.3 x 0.4 cm calculus in the lower left pelvis likely in the distal left ureter or UVJ r egion.
[2019-08-06] MEDS ORDERED: SODIUM CHLORIDE 0.9% 1,000 ML IV SCH (12:45)
[2019-08-06] MEDS ORDERED: METOCLOPRAMIDE 5 MG/ML 2 ML VIAL IVP STA (12:57)
[2019-08-06 14:00] VITALS: BP 145/71; PULSE 64
== END 2019-08-06 14:01 | disposition home or self-care (01) ==
LOC: EC 10:09
DX: N20.1 Calculus of ureter (principal); K29.70 Gastritis, unspecified, without bleeding; F17.200 Nicotine dependence, unspecified, uncomplicated; Z88.5 Allergy status to narcotic agent; Z88.6 Allergy status to analgesic agent
CPT/HCPCS: 36415; 93005; 80053; 82150; 83690; 84484; 85025; 81001; 74018; 99284; 96374; 96375 ×3; 96361; J2270; J2765; J2405; C9113

== ENCOUNTER 2019-09-08 09:55 | Emergency (ER) | payer OTHER ==
[2019-09-08] MEDS ORDERED: SODIUM CHLORIDE 0.9% 1,000 ML IV STA (10:39)
[2019-09-08] MEDS ORDERED: ONDANSETRON 4 MG/2 ML VIAL IVP STA (10:54)
[2019-09-08] MEDS ORDERED: KETOROLAC 30 MG/ML 1 ML VIAL IVP STA (10:54)
[2019-09-08 10:56] LABS: Appearance,Urine Cloudy (Clear); Bilirubin,Urine Negative (Negative); Blood,Urine Negative (Negative); Color,Urine Light Yellow; Glucose,Urine (UA) Negative (Negative); Ketones,Urine Negative (Negative); Leukocyte Esterase,Urine Trace (Negative); Nitrite,Urine Negative (Negative); PH, Urine 5.5 (5.0-8.0); Protein,Urine Negative (Negative); RBC,Urine <1 /hpf (0-5); Specific Gravity,Urine 1.009 (1.001-1.035); Squamous Epithelial Cell,Urine 4 /hpf (0-4); Urobilinogen,Urine <2.0 mg/dL (<2.0); WBC,Urine 5 /hpf (0-5)
--- NOTE | 2019-09-08 10:57 | ED ---
General Adult HPI - General Chief complaint: Abdominal Pain Stated complaint: Pain, nausea Time Seen by Provider: 09/08/19 10:08 Source: patient, RN notes reviewed Mode of arrival: ambulatory Limitations: no limitations - History of Present Illness Initial comments: 44-year-old female presents to the emergency department for a chief complaint of left flank pain. Patient states that she has had left leg pain for 2-3 months. States she has a kidney stone that she cannot pass. States that she is supposed to be getting surgery but is waiting for her insurance to authorize. I did review the CT from June 23 and it showed a mild to moderate left-sided [place] ureteral nephrosis secondary to a 1.4 cm times 2.6 cm UPJ calculus. Patient states that pain is continuing. States that she is vomiting for the past day. States that she is needing pain medication to help with her pain.Patient has no other complaints at this time including shortness of breath, chest pain, abdominal pain, nausea or vomiting, headache, or visual changes. - Related Data Home Medications Medication Instructions Recorded Confirmed Aspirin [Aspirin EC] 1,000 mg PO DAILY PRN 09/08/19 09/08/19 Ketorolac [Toradol] 10 mg PO TID PRN 09/08/19 09/08/19 Naproxen Sodium [Aleve] 880 mg PO DAILY PRN 09/08/19 09/08/19 Allergies Allergy/AdvReac Type Severity Reaction Status Date / Time hydrocodone bitartrate AdvReac Nausea & Verified 09/08/19 10:03 [From [place]] Vomiting Review of Systems ROS Statement: Those systems with pertinent positive or pertinent negative responses have been documented in the HPI. ROS Other: All systems not noted in ROS Statement are negative. Past Medical History Additional Past Medical History / Comment(s): Chronic back pain, gastritis History of Any Multi-Drug Resistant Organisms: None Reported Past Surgical History: Back Surgery, Orthopedic Surgery, Tubal Ligation Additional Past Surgical History / Comment(s): Neurostimulator for back pain knee surg Past Psychological History: No Psychological Hx Reported Smoking Status: Current every day smoker Past Alcohol Use History: Rare Past Drug Use History: Marijuana General Exam Limitations: no limitations General appearance: alert, in no apparent distress Head exam: Present: atraumatic, normocephalic, normal inspection Eye exam: Present: normal appearance, PERRL, EOMI. Absent: scleral icterus, conjunctival injection, periorbital swelling ENT exam: Present: normal exam, mucous membranes moist Neck exam: Present: normal inspection. Absent: tenderness, meningismus, lymphadenopathy Respiratory exam: Present: normal lung sounds bilaterally. Absent: respiratory distress, wheezes, rales, rhonchi, stridor Cardiovascular Exam: Present: regular rate, normal rhythm, normal heart sounds. Absent: systolic murmur, diastolic murmur, rubs, gallop, clicks GI/Abdominal exam: Present: soft, normal bowel sounds. Absent: distended, tenderness, guarding, rebound, rigid Back exam: Present: CVA tenderness (L) Course Vital Signs 09/08/19 09/08/19 09:59 11:27 Temperature 98.3 F Pulse Rate 97 75 Respiratory 22 18 Rate Blood Pressure 146/86 135/92 O2 Sat by Pulse 99 100 Oximetry Medical Decision Making - Medical Decision Making Vitals are stable. Patient is well appearing. CBC CMP unremarkable. Urinalysis unremarkable. Patient does not have any abdominal tenderness. X-ray KUB shows a stable 12 mm left hemipelvic calcification which may be within the left distal ureter. This was confirmed on CAT scan from June 2019 showing a mild to moderate left-sided hydronephrosis secondary to a large left UPJ contrast measuring 14 mm. patient was reevaluated, has not had any vomiting here in the emergency department. Pain is improved. Patient is stable for discharge. I did recommend she follow up closely with her urologist to discuss upcoming surgery. Discussed returning here if she has any worsening symptoms including unable to keep down solids or liquids. - Lab Data Result diagrams: 09/08/19 11:04 09/08/19 11:04 Lab Results 09/08/19 09/08/19 09/08/19 Range/Units 10:27 10:27 11:04 WBC 8.0 (3.8-10.6) k/uL RBC 4.56 (3.80-5.40) m/uL Hgb 13.7 (11.4-16.0) gm/dL Hct 42.1 (34.0-46.0) % MCV 92.3 (80.0-100.0) fL MCH 30.2 (25.0-35.0) pg MCHC 32.7 (31.0-37.0) g/dL RDW 12.8 (11.5-15.5) % Plt Count 256 (150-450) k/uL Neutrophils % 60 % Lymphocytes % 31 % Monocytes % 5 % Eosinophils % 2 % Basophils % 1 % Neutrophils # 4.8 (1.3-7.7) k/uL Lymphocytes # 2.5 (1.0-4.8) k/uL Monocytes # 0.4 (0-1.0) k/uL Eosinophils # 0.2 (0-0.7) k/uL Basophils # 0.1 (0-0.2) k/uL Sodium (137-145) mmol/L Potassium (3.5-5.1) mmol/L Chloride (98-107) mmol/L Carbon Dioxide (22-30) mmol/L Anion Gap mmol/L BUN (7-17) mg/dL Creatinine (0.52-1.04) mg/dL Est GFR (CKD-EPI)AfAm (>60 ml/min/1.73 sqM) Est GFR (CKD-EPI)NonAf (>60 ml/min/1.73 sqM) Glucose (74-99) mg/dL Calcium (8.4-10.2) mg/dL Total Bilirubin (0.2-1.3) mg/dL AST (14-36) U/L ALT (4-34) U/L Alkaline Phosphatase (38-126) U/L Total Protein (6.3-8.2) g/dL Albumin (3.5-5.0) g/dL Amylase (30-110) U/L Lipase (23-300) U/L Urine Color Light Yellow Urine Appearance Cloudy H (Clear) Urine pH 5.5 (5.0-8.0) Ur Specific [place] 1.009 (1.001-1.035) Urine Protein Negative (Negative) Urine Glucose (UA) Negative (Negative) Urine Ketones Negative (Negative) Urine Blood Negative (Negative) Urine Nitrite Negative (Negative) Urine Bilirubin Negative (Negative) Urine Urobilinogen <2.0 (<2.0) mg/dL Ur Leukocyte Esterase Trace H (Negative) Urine RBC <1 (0-5) /hpf Urine WBC 5 (0-5) /hpf Ur Squamous Epith Cells 4 (0-4) /hpf Urine HCG, Qual Not Detected (Not Detectd) 09/08/19 Range/Units 11:04 WBC (3.8-10.6) k/uL RBC (3.80-5.40) m/uL Hgb (11.4-16.0) gm/dL Hct (34.0-46.0) % MCV (80.0-100.0) fL MCH (25.0-35.0) pg MCHC (31.0-37.0) g/dL RDW (11.5-15.5) % Plt Count (150-450) k/uL Neutrophils % % Lymphocytes % % Monocytes % % Eosinophils % % Basophils % % Neutrophils # (1.3-7.7) k/uL Lymphocytes # (1.0-4.8) k/uL Monocytes # (0-1.0) k/uL Eosinophils # (0-0.7) k/uL Basophils # (0-0.2) k/uL Sodium 137 (137-145) mmol/L Potassium 4.3 (3.5-5.1) mmol/L Chloride 105 (98-107) mmol/L Carbon Dioxide 24 (22-30) mmol/L Anion Gap 8 mmol/L BUN 14 (7-17) mg/dL Creatinine 0.66 (0.52-1.04) mg/dL Est GFR (CKD-EPI)AfAm >90 (>60 ml/min/1.73 sqM) Est GFR (CKD-EPI)NonAf >90 (>60 ml/min/1.73 sqM) Glucose 81 (74-99) mg/dL Calcium 9.2 (8.4-10.2) mg/dL Total Bilirubin 0.5 (0.2-1.3) mg/dL AST 22 (14-36) U/L ALT 11 (4-34) U/L Alkaline Phosphatase 45 (38-126) U/L Total Protein 7.3 (6.3-8.2) g/dL Albumin 4.2 (3.5-5.0) g/dL Amylase 62 (30-110) U/L Lipase 97 (23-300) U/L Urine Color Urine Appearance (Clear) Urine pH (5.0-8.0) Ur Specific [place] (1.001-1.035) Urine Protein (Negative) Urine Glucose (UA) (Negative) Urine Ketones (Negative) Urine Blood (Negative) Urine Nitrite (Negative) Urine Bilirubin (Negative) Urine Urobilinogen (<2.0) mg/dL Ur Leukocyte Esterase (Negative) Urine RBC (0-5) /hpf Urine WBC (0-5) /hpf Ur Squamous Epith Cells (0-4) /hpf Urine HCG, Qual (Not Detectd) Disposition Clinical Impression: Kidney stone Disposition: HOME SELF-CARE Condition: Good Instructions (If sedation given, give patient instructions): Kidney Stones (ED) Additional Instructions: Please follow-up with your urologist this week. If you have any worsening symptoms return to the emergency department. Is patient prescribed a controlled substance at d/c from ED?: No Referrals: Clark Goncalves MD [Primary Care Provider] - 1-2 days Time of Disposition: 13:15
--- NOTE | 2019-09-08 11:21 | XR ---
EXAMINATION TYPE: XR KUB DATE OF EXAM: 09/08/2019 COMPARISON: 08/06/2019 HISTORY: Pain TECHNIQUE: One view abdominal series FINDINGS: The osseous structures are intact. The bowel gas pattern is nonspecific. Lung bases are clear. Stim ulator device noted. There is a calcification the lower left pelvis measuring 12mm. There is stable f rom prior exam. Postsurgical change lower lumbar spine. IMPRESSION: 1. Nonspecific abdomen. Stable 12 mm left hemipelvic calcification which may be within the distal le ft ureter.
[2019-09-08 11:28] VITALS: PULSE 75; RESP 18
[2019-09-08 11:28] LABS: ALT 11 U/L (4-34); AST 22 U/L (14-36); African American GFR (CKD) >90 (>60 ml/min/1.73 sqM); Albumin 4.2 g/dL (3.5-5.0); Alkaline Phosphatase 45 U/L (38-126); Amylase 62 U/L (30-110); Anion Gap 8 mmol/L; Blood Urea Nitrogen 14 mg/dL (7-17); Calcium 9.2 mg/dL (8.4-10.2); Carbon Dioxide 24 mmol/L (22-30); Chloride 105 mmol/L (98-107); Glucose 81 mg/dL (74-99); Non-African American GFR(CKD) >90 (>60 ml/min/1.73 sqM); Potassium 4.3 mmol/L (3.5-5.1); Sodium 137 mmol/L (137-145); Total Bilirubin 0.5 mg/dL (0.2-1.3); Total Protein 7.3 g/dL (6.3-8.2)
[2019-09-08] MEDS ORDERED: HYDROmorphone 0.5 MG/0.5 ML SYRINGE IVP STA (12:34)
[2019-09-08 12:37] LABS: Basophils # (A) 0.1 k/uL (0-0.2); Basophils % (A) 1 %; Eosinophils # (A) 0.2 k/uL (0-0.7); Eosinophils % (A) 2 %; HCT 42.1 % (34.0-46.0); HGB 13.7 gm/dL (11.4-16.0); Lymphocytes # (A) 2.5 k/uL (1.0-4.8); Lymphocytes % (A) 31 %; MCH 30.2 pg (25.0-35.0); MCHC 32.7 g/dL (31.0-37.0); MCV 92.3 fL (80.0-100.0); Mean Platelet Volume 10.4; Monocytes # (A) 0.4 k/uL (0-1.0); Monocytes % (A) 5 %; Neutrophils # (A) 4.8 k/uL (1.3-7.7); Neutrophils % (A) 60 %; Platelet Count 256 k/uL (150-450); RBC 4.56 m/uL (3.80-5.40); RDW 12.8 % (11.5-15.5)
[2019-09-08 13:45] VITALS: BP 146/95; TEMP 98
== END 2019-09-08 13:59 | disposition home or self-care (01) ==
LOC: EC 09:55
DX: N20.0 Calculus of kidney (principal); G89.29 Other chronic pain; M54.9 Dorsalgia, unspecified; F17.200 Nicotine dependence, unspecified, uncomplicated; Z79.82 Long term (current) use of aspirin; Z88.5 Allergy status to narcotic agent; Z98.890 Other specified postprocedural states
CPT/HCPCS: 36415; 80053; 82150; 83690; 85025; 81001; 81025; 74018; 99284; 96374; 96375 ×2; 96361; J2405; J1885; J1170

== ENCOUNTER 2019-11-10 20:41 | Emergency (ER) | payer OTHER ==
[2019-11-10 20:49] VITALS: RESP 18
[2019-11-10] MEDS ORDERED: KETOROLAC 30 MG/ML 1 ML VIAL IVP STA (21:01)
[2019-11-10] MEDS ORDERED: SODIUM CHLORIDE 0.9% 1,000 ML IV STA (21:01)
[2019-11-10] MEDS ORDERED: HYDROmorphone 0.5 MG/0.5 ML SYRINGE IVP STA (21:01)
[2019-11-10] MEDS ORDERED: ONDANSETRON 4 MG/2 ML VIAL IVP STA (21:01)
[2019-11-10 21:44] LABS: Basophils % (A) 0 %; Eosinophils # (A) 0.1 k/uL (0-0.7); Eosinophils % (A) 1 %; HCT 38.8 % (34.0-46.0); HGB 12.7 gm/dL (11.4-16.0); Lymphocytes % (A) 9 %; MCH 30.8 pg (25.0-35.0); MCHC 32.9 g/dL (31.0-37.0); MCV 93.9 fL (80.0-100.0); Mean Platelet Volume 9.5; Monocytes # (A) 0.3 k/uL (0-1.0); Monocytes % (A) 2 %; Neutrophils # (A) 9.5 k/uL (1.3-7.7); Neutrophils % (A) 87 %; Platelet Count 212 k/uL (150-450); RBC 4.13 m/uL (3.80-5.40)
--- NOTE | 2019-11-10 22:02 | CT ---
EXAMINATION TYPE: CT abdomen pelvis wo con DATE OF EXAM: 11/10/2019 HISTORY: left flank pain, hx of stones CT DLP: 348.6 mGycm. Automated Exposure Control for Dose Reduction was Utilized. TECHNIQUE: CT scan of the abdomen and pelvis is performed without oral or IV contrast. COMPARISON: CT abdomen and pelvis June 23, 2019 FINDINGS: Within the limitations of a non-contrast study, the following observations are made. LUNG BASES: No significant abnormality is appreciated. LIVER/GB: No significant abnormality is appreciated. PANCREAS: No significant abnormality is seen. SPLEEN: No significant abnormality is seen. ADRENALS: No significant abnormality is seen. KIDNEYS: There is more prominent now 3 mm calculus right kidney upper pole level axial image 46. No r ight-sided hydronephrosis. Suspect 2 mm nonobstructing calculus lower pole level anteriorly axial amari ge 53. Persistent moderate to severe left-sided hydronephrosis and fairly moderate left-sided hydrour eter without obstructing ureter calculus clearly seen. No dependent calculi and bladder. Nondependent focus of air noted axial image 119 along the right aspect. BOWEL: low lying cecum into the right pelvis. No suspicious small or large bowel dilatation. GENITAL ORGANS: Anteverted uterus. LYMPH NODES: No greater than 1cm abdominal or pelvic lymph nodes are appreciated. OSSEOUS STRUCTURES: Postsurgical change lumbosacral junction redemonstrated. Redemonstration of spina l stimulator device ascending mid to lower thoracic spinal canal. OTHER: No significant additional abnormality is seen. IMPRESSION: Fairly moderate left-sided hydronephrosis but obstructing ureter calculus not clearly julianna ntified on current study. Consider recently passed stone among possible etiologies. Correlate clinica lly. Nondependent air in bladder. Correlate for recent instrumentation otherwise other etiologies nee d to be considered such as fistula.
[2019-11-10 22:05] LABS: ALT 16 U/L (4-34); AST 26 U/L (14-36); African American GFR (CKD) >90 (>60 ml/min/1.73 sqM); Albumin 4.5 g/dL (3.5-5.0); Alkaline Phosphatase 55 U/L (38-126); Amylase 46 U/L (30-110); Anion Gap 8 mmol/L; Blood Urea Nitrogen 17 mg/dL (7-17); Calcium 9.2 mg/dL (8.4-10.2); Carbon Dioxide 23 mmol/L (22-30); Chloride 105 mmol/L (98-107); Glucose 145 mg/dL (74-99); Non-African American GFR(CKD) >90 (>60 ml/min/1.73 sqM); Potassium 4.7 mmol/L (3.5-5.1); Sodium 136 mmol/L (137-145); Total Bilirubin 0.7 mg/dL (0.2-1.3); Total Protein 7.4 g/dL (6.3-8.2)
--- NOTE | 2019-11-10 22:30 | ED ---
Abdominal Pain HPI - General Source: patient Mode of arrival: ambulatory Limitations: no limitations <Yessica Duffy - Last Filed: 11/10/19 23:47> <Kena Cruz - Last Filed: 11/12/19 13:29> - General Chief Complaint: Abdominal Pain Stated Complaint: Post Op Abd Pain Time Seen by Provider: 11/10/19 20:53 - History of Present Illness Initial Comments: 44-year-old female patient presents to the emergency department today for evaluation of abdominal pain extending from her midepigastric region down to her suprapubic region. Patient is also reporting left-sided flank pain. Patient states that she had kidney stone recently. States that it started around a month ago. States that she had a procedure today to put in a stent or possibly remove the stone, upon their evaluation this stone was no longer present that they did not do any of these procedures. Patient states this evening she started to have severe pain. States she feels like she still has the stone. States she is having some hematuria. Days that she feels feverish and chilled. States that she has nauseated but has not vomited. States she feels like she is having decreased urine output. Denies constipation or diarrhea. Patient denies any recent rash, cough, shortness of breath, chest pain, numbness, tingling, dizziness, weakness, headache, visual changes, or any other complaints. (Yessica Duffy) - Related Data Home Medications Medication Instructions Recorded Confirmed Aspirin [Aspirin EC] 1,000 mg PO DAILY PRN 09/08/19 09/08/19 Ketorolac [Toradol] 10 mg PO TID PRN 09/08/19 09/08/19 Naproxen Sodium [Aleve] 880 mg PO DAILY PRN 09/08/19 09/08/19 Previous Rx's Medication Instructions Recorded Ondansetron [Zofran ODT] 4 mg PO Q8HR PRN #10 tab 11/10/19 Tamsulosin HCl [Flomax] 0.4 mg PO DAILY #7 cap 11/10/19 Allergies Allergy/AdvReac Type Severity Reaction Status Date / Time honey Allergy Rash/Hives Verified 11/10/19 20:50 hydrocodone bitartrate AdvReac Nausea & Verified 09/08/19 10:03 [From [place]] Vomiting Review of Systems ROS Other: All systems not noted in ROS Statement are negative. <Yessica Duffy Anurag - Last Filed: 11/10/19 23:47> ROS Other: All systems not noted in ROS Statement are negative. <Kena Cruz Diana - Last Filed: 11/12/19 13:29> ROS Statement: Those systems with pertinent positive or pertinent negative responses have been documented in the HPI. Past Medical History Additional Past Medical History / Comment(s): Chronic back pain, gastritis History of Any Multi-Drug Resistant Organisms: None Reported Past Surgical History: Back Surgery, Orthopedic Surgery, Tubal Ligation Additional Past Surgical History / Comment(s): Neurostimulator for back pain knee surg, Past Psychological History: No Psychological Hx Reported Smoking Status: Current every day smoker Past Alcohol Use History: Rare Past Drug Use History: Marijuana <Yessica Duffy - Last Filed: 11/10/19 23:47> General Exam Limitations: no limitations General appearance: alert, in no apparent distress, other (This is a well- developed, well-nourished adult female patient in no acute distress. Vital signs upon presentation are temperature 98.0F, pulse 71, respirations 18, blood pressure 155/88, pulse ox 100% on room air.) Eye exam: Present: normal appearance, PERRL, EOMI. Absent: scleral icterus, conjunctival injection, periorbital swelling ENT exam: Present: normal exam, normal oropharynx, mucous membranes moist Respiratory exam: Present: normal lung sounds bilaterally. Absent: respiratory distress, wheezes, rales, rhonchi, stridor Cardiovascular Exam: Present: regular rate, normal rhythm, normal heart sounds. Absent: systolic murmur, diastolic murmur, rubs, gallop, clicks GI/Abdominal exam: Present: soft, tenderness (Generalized), normal bowel sounds. Absent: distended, guarding, rebound, rigid Back exam: Present: normal inspection, CVA tenderness (L). Absent: CVA tenderness (R) Neurological exam: Present: alert, oriented X3, CN II-XII intact Psychiatric exam: Present: normal affect, normal mood Skin exam: Present: warm, dry, intact, normal color. Absent: rash <Yessica Duffy - Last Filed: 11/10/19 23:47> Course Vital Signs 11/10/19 11/10/19 20:46 23:16 Temperature 98 F 98.1 F Pulse Rate 71 80 Respiratory 18 18 Rate Blood Pressure 155/88 138/74 O2 Sat by Pulse 100 98 Oximetry Medical Decision Making - Lab Data Result diagrams: 11/10/19 21:29 11/10/19 21:29 - EKG Data -: EKG Interpreted by Me - Radiology Data Radiology results: report reviewed, image reviewed <Yessica Duffy - Last Filed: 11/10/19 23:47> - Lab Data Result diagrams: 11/10/19 21:29 11/10/19 21:29 <Kena Cruz Diana - Last Filed: 11/12/19 13:29> - Medical Decision Making 44-year-old female patient presents to the emergency department today for evaluation of abdominal pain and left flank pain. Patient had recent stone that was 1.5 cm. She did undergo a surgical procedure today for stone removal however there is no stone present upon the urologist evaluation. Patient states his been having pain all afternoon. Physical examination did reveal suprapubic abdominal tenderness and left CVA tenderness. Labs reviewed and did reveal large amount of blood in the urine. Other labs are unremarkable. CT abdomen and pelvis without contrast was obtained and shows no evidence of recurrent stomatitis moderate left-sided hydronephrosis and hydroureter. This is consistent with recently passed stone. She did have air in the bilateral however did have recent instrumentation with her surgical procedure today. We did treat with Toradol, Dilaudid, Zofran as well as IV fluids. Upon reevaluation she is resting comfortably in bed and states her pain is completely resolved. She'll be discharged home with instructions to increase fluids. Pre scription of Flomax. She'll be given pain medication for the next 24-48 hours. She is instructed follow up with her urologist for further evaluation as soon as possible. Return parameters were discussed in detail. She verbalizes understanding and agrees with this plan. (Yessica Duffy) I was available for consultation in the emergency department. The history and p hysical exam were done by the midlevel provider. I was consulted for this patients care. I reviewed the case with the midlevel provider and based on their presentation of the patient, I agree with the assessment, medical decision making and plan of care as documented. Chart was dictated using [employer] dictation software. Attempts were made to correct any dictation errors however some typographical errors may persist. Patient was seen during a national state of emergency due to the Covid-19 [place]. (Kena Cruz) - Lab Data Lab Results 11/10/19 11/10/19 11/10/19 Range/Units 21:29 21:29 21:29 WBC 11.0 H (3.8-10.6) k/uL RBC 4.13 (3.80-5.40) m/uL Hgb 12.7 (11.4-16.0) gm/dL Hct 38.8 (34.0-46.0) % MCV 93.9 (80.0-100.0) fL MCH 30.8 (25.0-35.0) pg MCHC 32.9 (31.0-37.0) g/dL RDW 13.0 (11.5-15.5) % Plt Count 212 (150-450) k/uL Neutrophils % 87 % Lymphocytes % 9 % Monocytes % 2 % Eosinophils % 1 % Basophils % 0 % Neutrophils # 9.5 H (1.3-7.7) k/uL Lymphocytes # 1.0 (1.0-4.8) k/uL Monocytes # 0.3 (0-1.0) k/uL Eosinophils # 0.1 (0-0.7) k/uL Basophils # 0.0 (0-0.2) k/uL Sodium 136 L (137-145) mmol/L Potassium 4.7 (3.5-5.1) mmol/L Chloride 105 (98-107) mmol/L Carbon Dioxide 23 (22-30) mmol/L Anion Gap 8 mmol/L BUN 17 (7-17) mg/dL Creatinine 0.61 (0.52-1.04) mg/dL Est GFR (CKD-EPI)AfAm >90 (>60 ml/min/1.73 sqM) Est GFR (CKD-EPI)NonAf >90 (>60 ml/min/1.73 sqM) Glucose 145 H (74-99) mg/dL Plasma Lactic Acid [place] 2.1 H* (0.7-2.0) mmol/L Calcium 9.2 (8.4-10.2) mg/dL Total Bilirubin 0.7 (0.2-1.3) mg/dL AST 26 (14-36) U/L ALT 16 (4-34) U/L Alkaline Phosphatase 55 (38-126) U/L Troponin I (0.000-0.034) ng/mL Total Protein 7.4 (6.3-8.2) g/dL Albumin 4.5 (3.5-5.0) g/dL Amylase 46 (30-110) U/L Lipase 55 (23-300) U/L Urine Color Urine Appearance (Clear) Urine pH (5.0-8.0) Ur Specific [place] (1.001-1.035) Urine Protein (Negative) Urine Glucose (UA) (Negative) Urine Ketones (Negative) Urine Blood (Negative) Urine Nitrite (Negative) Urine Bilirubin (Negative) Urine Urobilinogen (<2.0) mg/dL Ur Leukocyte Esterase (Negative) Urine RBC (0-5) /hpf Urine WBC (0-5) /hpf Ur Squamous Epith Cells (0-4) /hpf Urine Mucus (None) /hpf 11/10/19 11/10/19 Range/Units 21:29 22:16 WBC (3.8-10.6) k/uL RBC (3.80-5.40) m/uL Hgb (11.4-16.0) gm/dL Hct (34.0-46.0) % MCV (80.0-100.0) fL MCH (25.0-35.0) pg MCHC (31.0-37.0) g/dL RDW (11.5-15.5) % Plt Count (150-450) k/uL Neutrophils % % Lymphocytes % % Monocytes % % Eosinophils % % Basophils % % Neutrophils # (1.3-7.7) k/uL Lymphocytes # (1.0-4.8) k/uL Monocytes # (0-1.0) k/uL Eosinophils # (0-0.7) k/uL Basophils # (0-0.2) k/uL Sodium (137-145) mmol/L Potassium (3.5-5.1) mmol/L Chloride (98-107) mmol/L Carbon Dioxide (22-30) mmol/L Anion Gap mmol/L BUN (7-17) mg/dL Creatinine (0.52-1.04) mg/dL Est GFR (CKD-EPI)AfAm (>60 ml/min/1.73 sqM) Est GFR (CKD-EPI)NonAf (>60 ml/min/1.73 sqM) Glucose (74-99) mg/dL Plasma Lactic Acid [place] (0.7-2.0) mmol/L Calcium (8.4-10.2) mg/dL Total Bilirubin (0.2-1.3) mg/dL AST (14-36) U/L ALT (4-34) U/L Alkaline Phosphatase (38-126) U/L Troponin I <0.012 (0.000-0.034) ng/mL Total Protein (6.3-8.2) g/dL Albumin (3.5-5.0) g/dL Amylase (30-110) U/L Lipase (23-300) U/L Urine Color Light Red Urine Appearance Cloudy H (Clear) Urine pH 6.0 (5.0-8.0) Ur Specific [place] 1.025 (1.001-1.035) Urine Protein 2+ H (Negative) Urine Glucose (UA) Negative (Negative) Urine Ketones 1+ H (Negative) Urine Blood Large H (Negative) Urine Nitrite Negative (Negative) Urine Bilirubin Negative (Negative) Urine Urobilinogen <2.0 (<2.0) mg/dL Ur Leukocyte Esterase Trace H (Negative) Urine RBC >182 H (0-5) /hpf Urine WBC 6 H (0-5) /hpf Ur Squamous Epith Cells 8 H (0-4) /hpf Urine Mucus Rare H (None) /hpf - EKG Data EKG Comments: EKG obtained at 2135 shows normal sinus rhythm with a sinus arrhythmia. Ventricular rate is 68, UT interval 148, QRS duration 100, QT 450, QTC 478. No evidence of ST elevation or depression. (Yessica Duffy) - Radiology Data CT abdomen and pelvis is obtained. Report was reviewed in its entirety. Impression by Dr. Adams shows fairly moderate left-sided hydronephrosis but obstructing ureteral calculus was not clearly identified on the current study. Consider recently passed stone a month possible etiologies. Correlate clinically. Nondependent air in the bladder. Correlate for recent instrumentation otherwise other etiologies need to be considered such as testic ular (Yessica Duffy) Disposition Is patient prescribed a controlled substance at d/c from ED?: No Time of Disposition: 23:03 <Yessica Duffy - Last Filed: 11/10/19 23:47> <Kena Cruz - Last Filed: 11/12/19 13:29> Clinical Impression: Abdominal pain, Hydronephrosis, left Disposition: HOME SELF-CARE Condition: Good Instructions (If sedation given, give patient instructions): Abdominal Pain (ED), Hydronephrosis (ED) Additional Instructions: Take medications as directed. Increase fluids. Follow-up with your urologist for further evaluation as soon as possible. Return to the emergency department immediately for any new, worsening, or concerning symptoms. Prescriptions: Tamsulosin HCl [Flomax] 0.4 mg PO DAILY #7 cap Ondansetron [Zofran ODT] 4 mg PO Q8HR PRN #10 tab PRN Reason: Nausea Referrals: Clark Goncalves MD [Primary Care Provider] - 1-2 days
[2019-11-10 22:46] LABS: Appearance,Urine Cloudy (Clear); Bilirubin,Urine Negative (Negative); Blood,Urine Large (Negative); Color,Urine Light Red; Glucose,Urine (UA) Negative (Negative); Ketones,Urine 1+ (Negative); Leukocyte Esterase,Urine Trace (Negative); Mucus,Urine Rare /hpf; Nitrite,Urine Negative (Negative); Protein,Urine 2+ (Negative); RBC,Urine >182 /hpf (0-5); Specific Gravity,Urine 1.025 (1.001-1.035); Squamous Epithelial Cell,Urine 8 /hpf (0-4); Urobilinogen,Urine <2.0 mg/dL (<2.0); WBC,Urine 6 /hpf (0-5)
[2019-11-10] MEDS ORDERED: TAMSULOSIN 0.4 MG CAP.ER.24H PO STA (23:02)
[2019-11-10] MEDS ORDERED: ONDANSETRON 4 MG ODT STARTER PACK 2 TAB BTL PO STA (23:02)
[2019-11-10] MEDS ORDERED: ACET/COD 300 MG/30 MG STARTER PACK 6 TAB BTL PO STA (23:02)
[2019-11-10 23:17] VITALS: BP 138/74; PULSE 80; TEMP 98.1
== END 2019-11-10 23:17 | disposition home or self-care (01) ==
LOC: EC 20:41
DX: N13.30 Unspecified hydronephrosis (principal); R31.9 Hematuria, unspecified; F17.200 Nicotine dependence, unspecified, uncomplicated; Z91.018 Allergy to other foods; Z88.5 Allergy status to narcotic agent; Z87.19 Personal history of other diseases of the digestive system; Z87.442 Personal history of urinary calculi; Z98.890 Other specified postprocedural states
CPT/HCPCS: 36415; 93005; 80053; 82150; 83605; 83690; 84484; 85025; 81001; 74176; 99284; 96374; 96375 ×2; 96361 ×2; J2405; J1885; S0119; J1170

== ENCOUNTER → 2019-12-09 | Outpatient (CLI) | payer OTHER ==
--- NOTE | 2019-12-09 16:12 | US ---
EXAMINATION TYPE: US kidneys/renal and bladder DATE OF EXAM: 12/09/2019 COMPARISON: CT's, 11/10/2019 CLINICAL HISTORY: Calculus of ureter N20.1. EXAM MEASUREMENTS: Right Kidney: 10.4 x 3.9 x 6.7 cm Left Kidney: 10.6 x 4.5 x 4.8 cm Post Void Residual Volume: 11.26 mL Right Kidney: fluid in renal pelvis , mild Elkins should be considered Left Kidney: mild hydro noted, post void images show fluid in renal pelvis. Bladder: wnl Bilateral Jets seen: yes Normal Post Void Residual: yes Renal calculi identified CT examination are not identified during this study IMPRESSION: 1. Mild bilateral hydronephrosis.
== END | disposition home or self-care (01) ==
LOC: RADUSWWP 15:34
PROVIDERS: ATTEND Urology
DX: N13.30 Unspecified hydronephrosis (principal)
CPT/HCPCS: 76770

== ENCOUNTER → 2020-02-05 | Outpatient (CLI) | payer OTHER ==
--- NOTE | 2020-02-05 18:15 | CONS ---
CONSULTATION DATE OF SERVICE: 02/05/2020 This patient is a 45-year-old lady who has been evaluated [facility] for difficulties initiating sleep, multiple awakenings from sleep and snoring. HISTORY OF PRESENT ILLNESS/SLEEP-WAKE EVALUATION: The patient's usual sleep schedule is from 8 p.m. to 4 a.m. on weekdays and on weekends from 9 p.m. until 5 or 6 a.m. She does have problem with falling asleep. She has a TV set in the bedroom. She usually sleeps on the side position, snores, and moves a lot during sleep. She has been told about episodes of stopped breathing during sleep. She grinds her teeth. Positive history of sleeptalking and sweating. She wakes up from sleep 4 times with 2 episodes of nocturia. No history of hypnagogic hallucinations, sleep paralysis or cataplexy. During the day, patient may take one nap at around a p.m. She feels refreshed after the nap. She does not see any vivid dreams during the nap. PAST MEDICAL HISTORY: Positive for acid reflux, allergies, thyroid nodule. PAST SURGICAL HISTORY: Knee surgery in 1987, tubal ligation, back surgery in 2006 and 2013, kidney surgery in 2019. SOCIAL HISTORY: Positive for smoking for 15 years, less than a pack a day. No alcohol consumption at present. FAMILY HISTORY: Positive for heart problems, hyperlipidemia, arthritis, snoring, cancer, restless legs, crib . PHYSICAL EXAMINATION: GENERAL: A pleasant lady without distress. VITAL SIGNS: BP 112/80, HR 98, RR 16, height 5 feet 7 inches, weight 127, BMI 19.8, temperature 99.1. Oxygen saturation at room air 97%. HEENT: PERRLA, EOMI. Evaluation of oropharynx showed tongue protrudes midline. Vertical position of soft palate is approximately normal, but in the horizontal dimension her soft palate is extremely close to the posterior pharyngeal wall. NECK: Supple. No JVD. Thyroid is not palpable. Neck measures 12 inches in circumference. LUNGS: Clear to percussion and to auscultation. Good air exchange. No wheezing or rhonchi. HEART: S1, S2 regular. No murmurs, gallops or rubs. ABDOMEN: Obese. EXTREMITIES: No clubbing or cyanosis. PMO LEAD: Awake, alert, and oriented X3. Cranial nerves 2 to 7 intact. There is no fasciculation or atrophy. noted. No focal deficits observed. IMPRESSION: 1. Snoring, multiple awakenings from sleep, short distance between soft palate and posterior pharyngeal wall, nocturia; possible obstructive sleep apnea-hypopnea syndrome. 2. Difficulties with initiating sleep; insomnia. 3. Acid reflux. 4. Allergies. 5. History of thyroid nodule. 6. Status post knee surgery. 7. Status post tubal ligation. 8. Status post back surgery x2. 9. Status post kidney surgery in 2020. PLAN: 1. Polysomnography for evaluation of patient's breathing during sleep. 2. CPAP/BiPAP titration if sleep study confirms obstructive sleep apnea-hypopnea syndrome. 3. Preferable position during sleep on the side. 4. No driving if patient feels any sleepiness. 5. I will see patient for follow up visit to explain results of testing and following plan. Thank you very much for referring this patient for consultation. Sincerely, Tucker Crews MD, PhD, FAASM Diplomat of [employer] [facility] [place] MMODL / KRUPAN: [id number] /
== END | disposition home or self-care (01) ==
LOC: SLEEP 13:06
PROVIDERS: ATTEND Internal Medicine
DX: G47.00 Insomnia, unspecified (principal); R06.83 Snoring; K21.9 Gastro-esophageal reflux disease without esophagitis; Z98.890 Other specified postprocedural states; T78.40XA Allergy, unspecified, initial encounter; Z86.39 Personal history of other endocrine, nutritional and metabolic disease; Z98.51 Tubal ligation status
CPT/HCPCS: 99211

== ENCOUNTER 2020-08-15 15:46 | Emergency (ER) | payer OTHER ==
[2020-08-15 16:08] VITALS: RESP 18; TEMP 99
[2020-08-15] MEDS ORDERED: SODIUM CHLORIDE 0.9% 1,000 ML IV STA (16:22)
[2020-08-15] MEDS ORDERED: ONDANSETRON 4 MG/2 ML VIAL IVP STA (16:22)
[2020-08-15] MEDS ORDERED: MAG HYDROX/AL HYDROX/SIMETH 30 ML, HYOSCYAMINE ELIXIR 10 ML, LIDOCAINE VISCOUS 2% 10 ML PO STA ×3 (16:23)
[2020-08-15] MEDS ORDERED: PANTOPRAZOLE 40 MG/10 ML VIAL IVP STA (16:23)
--- NOTE | 2020-08-15 16:25 | ED ---
Nausea/Vomiting/Diarrhea HPI - General Chief complaint: Nausea/Vomiting/Diarrhea Stated complaint: Abd Pain Time Seen by Provider: 08/15/20 16:10 Source: patient Mode of arrival: ambulatory Limitations: no limitations - History of Present Illness Initial comments: 45-year-old female history gastritis presents emergency Department with chief complaint of abdominal pain nausea vomiting. Patient reports Sunday night she was eating spaghetti and garlic bread without any difficulties and after going to bed, she woke up with sudden onset of nausea or vomiting and epigastric abdominal pain. Patient reports she has history of "gastritis attacks" in the salt feels just like it. However, she feels like there something stuck in her throat. States she is only been taking small sips of water since the incident occurred. she drank some apple cider vinegar in hopes of relieving the discomfort with no significant improvement. she has not eaten any solid food since the incident. She denies any chest pain but states there is a burning sensation in the epigastric region.denies any shortness of breath, headaches, one-sided weakness or paresthesias, blurry vision. - Related Data Home Medications Medication Instructions Recorded Confirmed Aspirin [Aspirin EC] 1,000 mg PO DAILY PRN 09/08/19 09/08/19 Ketorolac [Toradol] 10 mg PO TID PRN 09/08/19 09/08/19 Naproxen Sodium [Aleve] 880 mg PO DAILY PRN 09/08/19 09/08/19 Previous Rx's Medication Instructions Recorded Ondansetron [Zofran ODT] 4 mg PO Q8HR PRN #10 tab 11/10/19 Tamsulosin HCl [Flomax] 0.4 mg PO DAILY #7 cap 11/10/19 Allergies Allergy/AdvReac Type Severity Reaction Status Date / Time honey Allergy Rash/Hives Verified 08/15/20 16:07 hydrocodone bitartrate AdvReac Nausea & Verified 08/15/20 16:07 [From [place]] Vomiting Review of Systems ROS Statement: Those systems with pertinent positive or pertinent negative responses have been documented in the HPI. ROS Other: All systems not noted in ROS Statement are negative. Past Medical History Additional Past Medical History / Comment(s): Chronic back pain, gastritis History of Any Multi-Drug Resistant Organisms: None Reported Past Surgical History: Back Surgery, Orthopedic Surgery, Tubal Ligation Additional Past Surgical History / Comment(s): Neurostimulator for back pain knee surg, Past Psychological History: No Psychological Hx Reported Smoking Status: Former smoker Past Alcohol Use History: Rare Past Drug Use History: Marijuana General Exam Limitations: no limitations General appearance: alert, in no apparent distress Head exam: Present: atraumatic, normocephalic, normal inspection Eye exam: Present: normal appearance, PERRL, EOMI Pupils: Present: normal accommodation ENT exam: Present: normal exam, normal oropharynx, mucous membranes moist Neck exam: Present: normal inspection, full ROM. Absent: tenderness Respiratory exam: Present: normal lung sounds bilaterally. Absent: respiratory distress Cardiovascular Exam: Present: regular rate, normal rhythm, normal heart sounds GI/Abdominal exam: Present: soft, tenderness (epigastric tenderness). Absent: distended, guarding, rebound Extremities exam: Present: normal inspection, full ROM, normal capillary refill. Absent: tenderness, joint swelling Back exam: Present: normal inspection, full ROM. Absent: tenderness Neurological exam: Present: alert, oriented X3 Psychiatric exam: Present: normal affect, normal mood Skin exam: Present: warm, dry, intact, normal color Course Vital Signs 08/15/20 08/15/20 16:03 17:20 Temperature 99 F Pulse Rate 101 H 89 Respiratory 18 18 Rate Blood Pressure 154/106 140/92 O2 Sat by Pulse 100 100 Oximetry Medical Decision Making - Medical Decision Making 45-year-old femalepresents to emergency department with a chief complaint of nausea vomiting abdominal pain. On physical examination, she has epigastric ab dominal pain. This apparently feels like her previous episodes of gastritis. She did have cheese and spaghetti 3 days ago. she doesn't have any chest pain. ENT examination unremarkable. Patient is able to swallow food without any difficulties. She is not in any respiratory distress. Patient was given IV fluids, antiemetics and a GI cocktail. CBC reveals mild leukocytosis which I suspect is secondary to the vomiting. CMP unremarkable. UA shows +1 ketones. On reevaluation, patient reports significant improvement in symptoms. Patient has never had a GI scope. I give patient contact information for GI specialist. Strict return problems were thoroughly discussed the patient was understanding and agreeable. Case discussed with Dr. Guerra - Lab Data Result diagrams: 08/15/20 16:42 08/15/20 16:42 Lab Results 08/15/20 08/15/20 08/15/20 Range/Units 16:42 16:42 16:42 WBC 12.7 H (3.8-10.6) k/uL RBC 4.60 (3.80-5.40) m/uL Hgb 13.9 (11.4-16.0) gm/dL Hct 41.4 (34.0-46.0) % MCV 90.1 (80.0-100.0) fL MCH 30.3 (25.0-35.0) pg MCHC 33.7 (31.0-37.0) g/dL RDW 13.2 (11.5-15.5) % Plt Count 264 (150-450) k/uL MPV 9.6 Neutrophils % 80 % Lymphocytes % 12 % Monocytes % 7 % Eosinophils % 0 % Basophils % 0 % Neutrophils # 10.1 H (1.3-7.7) k/uL Lymphocytes # 1.5 (1.0-4.8) k/uL Monocytes # 0.9 (0-1.0) k/uL Eosinophils # 0.0 (0-0.7) k/uL Basophils # 0.0 (0-0.2) k/uL Sodium 137 (137-145) mmol/L Potassium 4.1 (3.5-5.1) mmol/L Chloride 102 (98-107) mmol/L Carbon Dioxide 21 L (22-30) mmol/L Anion Gap 14 mmol/L BUN 14 (7-17) mg/dL Creatinine 0.65 (0.52-1.04) mg/dL Est GFR (CKD-EPI)AfAm >90 (>60 ml/min/1.73 sqM) Est GFR (CKD-EPI)NonAf >90 (>60 ml/min/1.73 sqM) Glucose 106 H (74-99) mg/dL Calcium 9.5 (8.4-10.2) mg/dL Total Bilirubin 0.8 (0.2-1.3) mg/dL AST 36 (14-36) U/L ALT 18 (4-34) U/L Alkaline Phosphatase 63 (38-126) U/L Total Protein 7.8 (6.3-8.2) g/dL Albumin 4.6 (3.5-5.0) g/dL Lipase 33 (23-300) U/L Urine Color Light Yellow Urine Appearance Clear (Clear) Urine pH 6.5 (5.0-8.0) Ur Specific [place] 1.007 (1.001-1.035) Urine Protein Negative (Negative) Urine Glucose (UA) Negative (Negative) Urine Ketones 1+ H (Negative) Urine Blood Small H (Negative) Urine Nitrite Negative (Negative) Urine Bilirubin Negative (Negative) Urine Urobilinogen <2.0 (<2.0) mg/dL Ur Leukocyte Esterase Negative (Negative) Urine RBC 1 (0-5) /hpf Urine WBC 1 (0-5) /hpf Ur Squamous Epith Cells 1 (0-4) /hpf Urine Bacteria Rare H (None) /hpf - EKG Data EKG Comments: sinus rhythmwith QT prolongation. Ventricular rate 91, W[place] 138, QRS 70, QTC 511. Disposition Clinical Impression: Gastritis, Nausea & vomiting Disposition: HOME SELF-CARE Condition: Stable Instructions (If sedation given, give patient instructions): Acute Nausea and Vomiting (ED) Additional Instructions: avoid eating and drinking acidic foods. Follow with a GI specialist. Return to emergency department if symptoms worsen. Is patient prescribed a controlled substance at d/c from ED?: No Referrals: Oliver Jackson MD [Primary Care Provider] - 1-2 days Bubba Thomas MD [STAFF PHYSICIAN] - 1-2 days Time of Disposition: 17:44
[2020-08-15 17:06] LABS: Basophils % (A) 0 %; Eosinophils % (A) 0 %; HCT 41.4 % (34.0-46.0); HGB 13.9 gm/dL (11.4-16.0); Lymphocytes # (A) 1.5 k/uL (1.0-4.8); Lymphocytes % (A) 12 %; MCH 30.3 pg (25.0-35.0); MCHC 33.7 g/dL (31.0-37.0); MCV 90.1 fL (80.0-100.0); Mean Platelet Volume 9.6; Monocytes # (A) 0.9 k/uL (0-1.0); Monocytes % (A) 7 %; Neutrophils # (A) 10.1 k/uL (1.3-7.7); Neutrophils % (A) 80 %; Platelet Count 264 k/uL (150-450); RDW 13.2 % (11.5-15.5); WBC 12.7 k/uL (3.8-10.6)
[2020-08-15 17:08] LABS: Appearance,Urine Clear (Clear); Bacteria,Urine Rare /hpf; Bilirubin,Urine Negative (Negative); Blood,Urine Small (Negative); Color,Urine Light Yellow; Glucose,Urine (UA) Negative (Negative); Ketones,Urine 1+ (Negative); Leukocyte Esterase,Urine Negative (Negative); Nitrite,Urine Negative (Negative); PH, Urine 6.5 (5.0-8.0); Protein,Urine Negative (Negative); RBC,Urine 1 /hpf (0-5); Specific Gravity,Urine 1.007 (1.001-1.035); Squamous Epithelial Cell,Urine 1 /hpf (0-4); Urobilinogen,Urine <2.0 mg/dL (<2.0); WBC,Urine 1 /hpf (0-5)
[2020-08-15 17:15] LABS: ALT 18 U/L (4-34); AST 36 U/L (14-36); African American GFR (CKD) >90 (>60 ml/min/1.73 sqM); Albumin 4.6 g/dL (3.5-5.0); Alkaline Phosphatase 63 U/L (38-126); Anion Gap 14 mmol/L; Blood Urea Nitrogen 14 mg/dL (7-17); Calcium 9.5 mg/dL (8.4-10.2); Carbon Dioxide 21 mmol/L (22-30); Chloride 102 mmol/L (98-107); Glucose 106 mg/dL (74-99); Lipase 33 U/L (23-300); Non-African American GFR(CKD) >90 (>60 ml/min/1.73 sqM); Potassium 4.1 mmol/L (3.5-5.1); Sodium 137 mmol/L (137-145); Total Bilirubin 0.8 mg/dL (0.2-1.3); Total Protein 7.8 g/dL (6.3-8.2)
[2020-08-15 17:21] VITALS: BP 140/92; PULSE 89
== END 2020-08-15 18:01 | disposition home or self-care (01) ==
LOC: EC 15:46
DX: K29.70 Gastritis, unspecified, without bleeding (principal); D72.829 Elevated white blood cell count, unspecified; G89.29 Other chronic pain; M54.9 Dorsalgia, unspecified; Z91.018 Allergy to other foods; Z88.5 Allergy status to narcotic agent; Z98.51 Tubal ligation status; Z87.891 Personal history of nicotine dependence
CPT/HCPCS: 36415; 93005; 80053; 83690; 85025; 81001; 99284; 96374; 96375; J2405; C9113

== ENCOUNTER → 2022-11-08 | Outpatient (CLI) | payer BC, OTHER ==
--- NOTE | 2022-11-08 12:26 | P.PN ---
Subjective DATE: 11/08/2022 FOLLOW UP VISIT. Patient returned to sleep center because recently she again started to have episodes of sleep walking and also out of dream movements. This episodes happened now practically every night and patient has bruises on her arm related to this episodes. Patient was seen in sleep center in 2019. At that time polysomnogram was negative for obstructive sleep apnea hypopnea syndrome. Snoring have been documented during the sleep study. Presently patient increased to wait on about 20 pounds comparing with weight during sleep study 3 years ago. She also in the menopause now, her menstrual periods are irregular. [place] sleepiness scale is 5. MEDICATIONS:1. Doxepin 100 mg at bedtime 2. Methimazole 5 mg 2 times per week 3. Rosuvastatin 20 mg once a day During physical exam: GENERAL: A pleasant patient without any distress. VITAL SIGNS: BP 149/89, HR 89, RR 12, weight 146, temperature 97.5, oxygen saturation at room air 100%. HEENT: PERRLA, EOMI. NECK: Supple. No JVD. LUNGS: Clear to percussion and to auscultation. Good air exchange. No wheezing or rhonchi. HEART: S1, S2 regular. ABDOMEN: Soft and nontender. EXTREMITIES: No clubbing or cyanosis. Esteban on on the right elbow. DEPUTY DISTRICT CUSTOMS DIRECTOR: Awake, alert, and oriented x3. No focal deficit. Impressions: 1. REM sleep behavior disorder 2. History of sleepwalking. 3. Snoring, retrognathia 4 mm, small oropharyngeal airspace. Possible obstructive sleep apnea hypopnea syndrome. Sleep study 3 years ago was negative, but patient increased weight and 20 pounds and in perimenopause now which may increase risk for sleep apnea. Sleep apnea could be the reason for developing of REM sleep behavior episodes.. 4. History of PTSD. 5. History of acid reflux. 6. History of thyroid nodule. 7. Status post knee surgery. 8. Status post tubal ligation. 9. Status post back surgery 2. 10 status post kidney surgery in 2019 Plan: 1. Patient will be started on treatment with clonazepam 0.5 mg today, if necessary dose will be increased. 2. Put sleep mattress on the floor to prevent falling. 3. No excess to fire, sharp objects during the night. Close doors and windows. 4. Polysomnogram for evaluation of parasomnia and to check for possibility of obstructive sleep apnea hypopnea syndrome. 5. Follow up visit in one week or earlier if patient has any problems. 6. Precautions related to driving. No driving if feel any sleepiness. Patient is aware about civil and criminal liability for unsafe driving, promised to follow recommendations. Thank you very much for allowing me to participate in the management of your patient. Tucker Crews MD, PhD, FAASM. Diplomat of [place] [employer], Sleep Medicine Board by [place] [employer] Felt Finishing Supervisor of [facility] [place]
== END ==
LOC: SLEEP 11:35
PROVIDERS: ATTEND Internal Medicine
DX: G47.30 Sleep apnea, unspecified (principal); G47.52 REM sleep behavior disorder; K21.9 Gastro-esophageal reflux disease without esophagitis; M26.19 Other specified anomalies of jaw-cranial base relationship; Z79.899 Other long term (current) drug therapy; Z98.890 Other specified postprocedural states; Z99.89 Dependence on other enabling machines and devices; Z91.02 Food additives allergy status; Z88.5 Allergy status to narcotic agent; F17.200 Nicotine dependence, unspecified, uncomplicated
CPT/HCPCS: 99212

== ENCOUNTER → 2022-11-16 | Outpatient (CLI) | payer BC, OTHER ==
--- NOTE | 2022-11-16 11:26 | P.PN ---
Subjective DATE: 11/16/2022 FOLLOW UP VISIT. Apnea to be sleepwalking and sleep and possible REM sleep behavior disorder return to sleep center for follow-up visit. During previous visit I started patient on treatment with the clonazepam 0.5 mg at bedtime. Patient sleeps better with medication but still has episodes of sleepwalking, last episode last night. . [place] sleepiness scale is 2, which is normal. MEDICATIONS:1. Rosuvastatin 20 mg once a day 2. Methimazole 5 mg twice a week 3. Clonazepam 0.5 mg at bedtime During physical exam: GENERAL: A pleasant patient without any distress. VITAL SIGNS: BP 154/112, HR 87, RR 12 , weight 146, temperature 97.5, oxygen saturation at room air 100 . HEENT: PERRLA, EOMI. NECK: Supple. No JVD. LUNGS: Clear to percussion and to auscultation. Good air exchange. No wheezing or rhonchi. HEART: S1, S2 regular. ABDOMEN: Soft and nontender. EXTREMITIES: No clubbing or cyanosis. INFANTRY WEAPONS CREWMEMBER: Awake, alert, and oriented x3. No focal deficit. Impressions: 1. Possibly REM sleep behavior disorder 2. Sleepwalking. 3. History of PTSD. 4. Possible obstructive sleep apnea. 5. History of acid reflux. 6. History of thyroid nodule. 7. Status post knee surgery. 8. Status post back surgery 2. 9. Status post kidney surgery in 2019. 10 status post tubal ligation Plan: 1. Patient will continue treatment with clonazepam, dose will be increased to 0.75 mg to 1 mg at bedtime. 2. Sleep hygiene with regular time in bed for at least 8 hours. 3. Polysomnogram have been scheduled 4. Precautions related to driving. No driving if feel any sleepiness. Patient is aware about civil and criminal liability for unsafe driving, promised to follow recommendations. 5. Follow up visit in 2 weeks or earlier if patient has any problems. 6. Extreme precautions related to sleepwalking and the possibly REM sleep behavior disorder have been discussed. Thank you very much for allowing me to participate in the management of your patient. Tucker Crews MD, PhD, FAASM. Diplomat of [place] [employer] Medicine, Sleep Medicine Board by [place] [employer] Rod Straightener of [facility] [place]
== END | disposition home or self-care (01) ==
LOC: SLEEP 10:40
PROVIDERS: ATTEND Internal Medicine
DX: F51.3 Sleepwalking [somnambulism] (principal); K21.9 Gastro-esophageal reflux disease without esophagitis; E04.1 Nontoxic single thyroid nodule; Z98.890 Other specified postprocedural states; F17.210 Nicotine dependence, cigarettes, uncomplicated; Z98.51 Tubal ligation status; Z91.49 Other personal history of psychological trauma, not elsewhere classified; Z79.899 Other long term (current) drug therapy; Z91.030 Bee allergy status; Z88.5 Allergy status to narcotic agent
CPT/HCPCS: 99212

== ENCOUNTER → 2022-11-30 | Outpatient (CLI) | payer BC, OTHER ==
--- NOTE | 2022-11-30 10:48 | P.PN ---
Subjective DATE: 11/30/2022 FOLLOW UP VISIT. Patient returned to sleep center for follow-up visit related to treatment of possibly REM sleep behavior disorder and narcolepsy. After last visit dose of clonazepam was increased to 0.75 mg, but patient continued to have episodes of out of dream movements and sleepwalking during the night. Then dose was increased to 1 mg of clonazepam and with his dose patient did not had any abnormal episodes at night.. . [place] sleepiness scale is 5, which is normal. MEDICATIONS:1. Clonazepam 1 mg at bedtime 2. Rosuvastatin 20 mg once a day 3. Methimazole 5 mg twice a week During physical exam: GENERAL: A pleasant patient without any distress. VITAL SIGNS: BP 126/75, HR 86, RR 16 , weight 144.2, temperature 98.9, oxygen saturation at room air 98% . HEENT: PERRLA, EOMI. NECK: Supple. No JVD. LUNGS: Clear to percussion and to auscultation. Good air exchange. No wheezing or rhonchi. HEART: S1, S2 regular. ABDOMEN: Soft and nontender. EXTREMITIES: No clubbing or cyanosis. SUPERVISOR PACKING: Awake, alert, and oriented x3. No focal deficit. Impressions: 1. Possibly REM sleep behavior disorder 2. Sleepwalking. 3. Possible obstructive sleep apnea. 4. History of PTSD. 5. History of acid reflux. 6. History of thyroid nodule. 7. Status post knee surgery. 8. Status post back surgery 2. 9. Status post kidney surgery in 2019. Plan: 1. Patient will continue treatment with clonazepam 1 mg at bedtime 2. Sleep hygiene with regular time in bed for at least 8 hours. 3. Polysomnogram for evaluation of patient breathing during the sleep and to confirm parasomnia have been scheduled. 4. Precautions related to driving. No driving if feel any sleepiness. Patient is aware about civil and criminal liability for unsafe driving, promised to follow recommendations. 5. Follow up visit after eating sleep test to review results and following plan.. Thank you very much for allowing me to participate in the management of your patient. Tucker Crews MD, PhD, FAASM. Diplomat of [place] [employer] Medicine, Sleep Medicine Board by [place] [employer] Medicine Laboratory Chief of [facility] [place]
== END ==
LOC: SLEEP 10:15
PROVIDERS: ATTEND Internal Medicine
DX: G47.419 Narcolepsy without cataplexy (principal); F43.10 Post-traumatic stress disorder, unspecified; F51.3 Sleepwalking [somnambulism]; K21.9 Gastro-esophageal reflux disease without esophagitis; Z79.899 Other long term (current) drug therapy; Z98.890 Other specified postprocedural states; G47.9 Sleep disorder, unspecified; Z91.02 Food additives allergy status; Z88.5 Allergy status to narcotic agent; F17.200 Nicotine dependence, unspecified, uncomplicated
CPT/HCPCS: 99212

== ENCOUNTER 2022-12-25 19:18 | Outpatient (CLI) | payer BC, OTHER | END 2022-12-26 23:59 | LOC: 3 N SLEEP 19:18 → EDSTATUS 19:20 → 3 N SLEEP 12-26 05:30 | PROVIDERS: ATTEND Internal Medicine | DX: G47.33 Obstructive sleep apnea (adult) (pediatric) (principal); F17.200 Nicotine dependence, unspecified, uncomplicated; Z91.018 Allergy to other foods; Z88.5 Allergy status to narcotic agent | CPT/HCPCS: 95810 ==

== ENCOUNTER → 2023-02-01 | Outpatient (CLI) | payer BC, OTHER ==
--- NOTE | 2023-02-01 16:32 | P.PN ---
Subjective DATE: 02/01/2023 FOLLOW UP VISIT. Patient returned to sleep center for follow-up visit related to treatment of movements during the sleep related to possibly REM sleep behavior disorder and sleep walking. I discussed with patient results of polysomnogram which was done on 12/25/2022. Sleep study did not show any significant respiratory a bnormalities. Total apnea hypopnea index was only 0.9, which is totally normal. Significant amount of periodic limb movements have been documented 109 per hour, but only with 1.3 micro-arousals per hour. Patient is on treatment with clonazepam. Dose was increased to 1 mg at bedtime (2 tablets of 0.5 mg). With this regimen no out of dream movements and no sleep walking episodes sometimes patient still wakes up from sleep after several hours. Presently patient sleep schedule from 2:30 AM until about 6 AM. Patient takes clonazepam at 1 AM. On doxepin patient sleeps better for about 7-8 hours, but has episodes of sleep walking. . [place] sleepiness scale is[]. MEDICATIONS:1. Rosuvastatin 20 mg once a day 2. Clonazepam 1 mg at bedtime 3. Methimazole 5 mg twice a week During physical exam: GENERAL: A pleasant patient without any distress. VITAL SIGNS: BP 130/83 HR 78 RR 14, weight 129.6 temperature 97.6, oxygen saturation at room air 100%. HEENT: PERRLA, EOMI. NECK: Supple. No JVD. LUNGS: Clear to percussion and to auscultation. Good air exchange. No wheezing or rhonchi. HEART: S1, S2 regular. ABDOMEN: Soft and nontender. EXTREMITIES: No clubbing or cyanosis. STRINGER MACHINE TENDER: Awake, alert, and oriented x3. No focal deficit. Impressions: 1. Sleep walking 2. Possible REM sleep behavior disorder. 3. History of PTSD. 4. History of acid reflux. 5. History of thyroid nodule. 6. Status post back surgery 2. 7. Status post knee surgery. 8. Status post kidney surgery in 2019. 9. No significant respiratory abnormalities during sleep study. 10 severe periodic limb movements, but without significant amount of micro- arousals Plan: 1. Patient will continue treatment with Adderall 0.75 mg at bedtime ( 1.5 tablets of 0.5 mg ). 2. Sleep hygiene with regular time in bed for at least 8 hours. 3. Please check iron profile including ferritin level, low level of iron may increase risk for periodic limb movements . 4. Precautions related to driving. No driving if feel any sleepiness. Patient is aware about civil and criminal liability for unsafe driving, promised to follow recommendations. 5. Follow up visit in 1-2 months or earlier if patient has any problems. 6. We may consider pharmacotherapy with lowest dose of dopaminergic agonists for prevention of periodic limb movements. Thank you very much for allowing me to participate in the management of your patient. Tucker Crews MD, PhD, FAASM. Diplomat of [employer] [employer] Medicine, Sleep Medicine Board by [employer] Medicine Spin Table Operator of [facility] [place]
== END ==
LOC: 3 N SLEEP 10:21
PROVIDERS: ATTEND Internal Medicine
DX: K21.9 Gastro-esophageal reflux disease without esophagitis (principal); E04.1 Nontoxic single thyroid nodule; G47.61 Periodic limb movement disorder; F17.200 Nicotine dependence, unspecified, uncomplicated; F43.10 Post-traumatic stress disorder, unspecified; F51.3 Sleepwalking [somnambulism]; Z98.890 Other specified postprocedural states; Z91.018 Allergy to other foods; Z88.5 Allergy status to narcotic agent
CPT/HCPCS: 99212

== ENCOUNTER → 2023-12-06 | Outpatient (CLI) | payer BC ==
[2023-12-06 15:44] VITALS: BP 141/86; PULSE 94; RESP 16; TEMP 98.2
--- NOTE | 2023-12-06 16:20 | P.PROGSL ---
Subjective DATE: [] FOLLOW UP VISIT. Patient returned to sleep center for follow-up visit related to treatment of sleepwalking and possible REM sleep behavioral disorder. Patient is on treatment with clonazepam 1 mg at bedtime. With medication sleepwalking mostly under control . [place] sleepiness scale is 5, which is normal. MEDICATIONS: Please see below During physical exam: GENERAL: A pleasant patient without any distress. VITAL SIGNS: Please see below. HEENT: PERRLA, EOMI. NECK: Supple. No JVD. LUNGS: Clear to percussion and to auscultation. Good air exchange. No wheezing or rhonchi. HEART: S1, S2 regular. ABDOMEN: Soft and nontender. EXTREMITIES: No clubbing or cyanosis. NEWSPAPER COPY EDITOR: Awake, alert, and oriented x3. No focal deficit. Impressions: 1. Sleepwalking 2. Possible REM sleep behavioral disorder. 3. History of PTSD. 4. History of acid reflux. 5. History of thyroid nodule. 6. Status post back surgery x 2. 7. Status post knee surgery. 8. Status post kidney surgery in 2019. 9. Severe periodic limb movements, but without significant microarousal's. 10 no significant respiratory abnormalities during sleep. Plan: 1. Patient will continue treatment with clonazepam 0.5 mg 2 tablets at bedtime 2. Sleep hygiene with regular time in bed for at least 8 hours. 3. Precautions related to sleepwalking and possible REM sleep behavior disorder. 2 close door and windows in the house, no access to guns and fire during sleep time. 4. Precautions related to driving. No driving if feel any sleepiness. Patient is aware about civil and criminal liability for unsafe driving, promised to follow recommendations. 5. Follow up visit in 4-6 months or earlier if patient has any problems. Thank you very much for allowing me to participate in the management of your patient. Tucker Crews MD, PhD, FAASM. Diplomat of [place] [employer] Sleep Medicine, Sleep Medicine Board by [place] [employer] Medicine Surveyor [employer] Directional of [facility] [place] Objective - Vital Signs Vital Signs: Vital Signs Temp 98.2 F 12/06/23 15:32 Pulse 94 12/06/23 15:32 Resp 16 12/06/23 15:32 BP 141/86 12/06/23 15:32 Pulse Ox 100 12/06/23 15:32 FiO2 Intake & Output 12/05/23 12/06/23 12/06/23 18:59 06:59 18:59 Weight 63.503 kg Home Medications: Home Medications Medication Instructions Recorded Confirmed Type Aspirin [Aspirin EC] 1,000 mg PO DAILY PRN 09/08/19 09/08/19 History Ketorolac [Toradol] 10 mg PO TID PRN 09/08/19 09/08/19 History Naproxen Sodium [Aleve] 880 mg PO DAILY PRN 09/08/19 09/08/19 History Ondansetron [Zofran ODT] 4 mg PO Q8HR PRN #10 tab 11/10/19 Rx Doxepin HCl [SINEquan] 100 mg PO 12/06/23 History Prazosin HCl 2 mg PO HS 12/06/23 12/06/23 History Rosuvastatin [Crestor] 20 mg PO HS 12/06/23 12/06/23 History clonazePAM [Clonazepam] 0.5 mg PO HS 12/06/23 12/06/23 History methIMAzole [Tapazole] 5 mg PO DIRECTED 12/06/23 12/06/23 History
== END ==
LOC: 3 N SLEEP 15:13
PROVIDERS: ATTEND Internal Medicine
DX: G47.61 Periodic limb movement disorder (principal); F51.3 Sleepwalking [somnambulism]; F17.200 Nicotine dependence, unspecified, uncomplicated; Z86.59 Personal history of other mental and behavioral disorders; Z87.19 Personal history of other diseases of the digestive system; Z86.39 Personal history of other endocrine, nutritional and metabolic disease; Z98.890 Other specified postprocedural states; Z91.018 Allergy to other foods; Z88.5 Allergy status to narcotic agent
CPT/HCPCS: 99212

== ENCOUNTER 2025-01-15 23:28 | Emergency (ER) | payer BC ==
[2025-01-15 23:42] VITALS: TEMP 97.6
[2025-01-16] MEDS: HYDROmorphone 1 MG/ML 1 ML SYRINGE IVP STA (00:03)
[2025-01-16] MEDS: PANTOPRAZOLE 40 MG/10 ML VIAL IVP STA (00:03)
[2025-01-16] MEDS: ONDANSETRON 4 MG/2 ML VIAL IVP STA (00:03)
[2025-01-16] MEDS: LACTATED RINGERS 1,000 ML IV ONE (00:04)
[2025-01-16 00:10] LABS: Basophils # (A) 0.10 10*3/uL (0.00-0.10); Basophils % (A) 0.8 %; Eosinophils # (A) 0.13 10*3/uL (0.04-0.35); Eosinophils % (A) 1.0 %; HCT 38.7 % (37.2-46.3); HGB 13.4 g/dL (12.0-15.0); Lymphocytes # (A) 2.56 10*3/uL (0.90-5.00); Lymphocytes % (A) 20.0 %; MCH 30.6 pg (27.0-32.0); MCHC 34.6 g/dL (32.0-37.0); MCV 88.4 fL (80.0-97.0); Monocytes # (A) 0.94 10*3/uL (0.20-1.00); Monocytes % (A) 7.3 %; Neutrophils # (A) 9.03 10*3/uL (1.80-7.70); Neutrophils % (A) 70.4 %; Platelet Count 303 10*3/uL (140-440); RBC 4.38 10*6/uL (4.10-5.20); RDW 12.4 % (11.5-14.5); WBC 12.82 10*3/uL (4.50-10.00)
[2025-01-16 00:11] LABS: ALT 26 U/L (4-34); AST 36 U/L (14-36); African American GFR (CKD) >90 (>60 ml/min/1.73 sqM); Albumin 5.0 g/dL (3.5-5.0); Alkaline Phosphatase 94 U/L (38-126); Amylase 86 U/L (30-110); Anion Gap 16 mmol/L; Blood Urea Nitrogen 19 mg/dL (7-17); Calcium 10.6 mg/dL (8.4-10.2); Carbon Dioxide 21 mmol/L (22-30); Chloride 102 mmol/L (98-107); Glucose 146 mg/dL (74-99); Lipase 185 U/L (23-300); Non-African American GFR(CKD) >90 (>60 ml/min/1.73 sqM); Potassium 4.2 mmol/L (3.5-5.1); Sodium 139 mmol/L (137-145); Total Protein 7.8 g/dL (6.3-8.2)
[2025-01-16 00:19] LABS: INR 1.0 (<1.2); Partial Thromboplastin Time 20.9 sec (22.0-30.0); Prothrombin Time 11.4 sec (10.0-12.5)
[2025-01-16] MEDS ORDERED: SODIUM CHLORIDE 0.9% 1,000 ML IV ONE (01:46)
--- NOTE | 2025-01-16 02:01 | US ---
EXAM: US Abdomen Limited, Gallbladder CLINICAL HISTORY: ITS.REASON US Reason: abd pain, n/v TECHNIQUE: Real-time ultrasound of the right upper quadrant with image documentation. COMPARISON: No relevant prior studies available. FINDINGS: Liver: Unremarkable. No mass. No intrahepatic bile duct dilation. Gallbladder: Unremarkable. No gallstones. Common bile duct: No stones. Mildly dilated 7 mm. Pancreas: Obscured. Right kidney: Unremarkable. No stones. No solid mass. No hydronephrosis. IMPRESSION: CBD mildly dilated 7 mm. No definite stones identified
--- NOTE | 2025-01-16 02:36 | ED ---
General Adult HPI - General Chief complaint: Abdominal Pain Stated complaint: Abd pain Time Seen by Provider: 01/15/25 23:30 Source: patient, RN notes reviewed, old records reviewed Mode of arrival: ambulatory Limitations: no limitations - History of Present Illness Initial comments: 49-year-old female presents emergency department complaining of epigastric abdominal pain with nausea and vomiting. Has a history of this. States she has a history of gastritis. Has been ongoing all night. States that pain meds help as well as Zofran. Denies any chest pain or shortness of breath. Denies any diarrhea or constipation. Presents for further evaluation at this time. States emesis is nonbilious nonbloody. - Related Data Home Medications Medication Instructions Recorded Confirmed Aspirin [Aspirin EC] 1,000 mg PO DAILY PRN 09/08/19 09/08/19 Ketorolac [Toradol] 10 mg PO TID PRN 09/08/19 09/08/19 Naproxen Sodium [Aleve] 880 mg PO DAILY PRN 09/08/19 09/08/19 Doxepin HCl [SINEquan] 100 mg PO 12/06/23 Prazosin HCl [Minipress] 2 mg PO HS 12/06/23 12/06/23 Rosuvastatin [Crestor] 20 mg PO HS 12/06/23 12/06/23 clonazePAM [Clonazepam] 0.5 mg PO HS 12/06/23 12/06/23 methIMAzole [Tapazole] 5 mg PO DIRECTED 12/06/23 12/06/23 Previous Rx's Medication Instructions Recorded Ondansetron [Zofran ODT] 4 mg PO Q8HR PRN #10 tab 11/10/19 Allergies Allergy/AdvReac Type Severity Reaction Status Date / Time honey Allergy Rash/Hives Verified 04/05/23 18:04 hydrocodone bitartrate AdvReac Nausea & Verified 04/05/23 18:04 [From [facility]] Vomiting Review of Systems ROS Statement: Those systems with pertinent positive or pertinent negative responses have been documented in the HPI. Review of Systems: CONST: Denies fever EYES: Denies blurry vision ENT: Denies nasal congestion C/V: Denies Chest pain RESP: Denies shortness of breath GI: Dors is nausea and vomiting. Denies significant abdominal pain. : Denies dysuria SKIN: Denies rash. MSK: Denies joint pain. NEURO: Denies headache ROS Other: All systems not noted in ROS Statement are negative. Past Medical History Additional Past Medical History / Comment(s): Chronic back pain, gastritis History of Any Multi-Drug Resistant Organisms: None Reported Past Surgical History: Back Surgery, Orthopedic Surgery, Tubal Ligation Additional Past Surgical History / Comment(s): Neurostimulator for back pain knee surg, Past Psychological History: No Psychological Hx Reported Smoking Status: Former smoker Past Alcohol Use History: Rare Past Drug Use History: Marijuana General Exam - General Exam Comments Initial Comments: General: Appears in mild to moderate distress secondary to nausea and vomiting HEAD: Normal with no signs of head trauma. EYES: PERRLA, EOMI, conjunctiva normal, no discharge. ENT: Hearing grossly intact, normal oropharynx. Relatively moist mucous membranes. RESPIRATORY: Clear breath sounds bilaterally. No wheezes, rales, or rhonchi. C/V: Regular rate and rhythm. S1 and S2 auscultated, no edema, peripheral pulses 2+ and intact throughout ABD: Soft, nondistended. Very mildly tender to palpation in the epigastric region. No guarding or rebound tenderness. No peritoneal signs. EXT: Normal range of motion, no obvious deformity SKIN: No rashes or lesions observed on exposed skin. NEURO: Alert and oriented x 4. Limitations: no limitations Course Vital Signs 01/15/25 01/16/25 23:37 02:42 Temperature 97.6 F Pulse Rate 81 87 Respiratory 22 18 Rate Blood Pressure 176/101 161/80 O2 Sat by Pulse 100 97 Oximetry Medical Decision Making - Medical Decision Making Was pt. sent in by a medical professional or institution (, PA, VALVING MACHINE OPERATOR, urgent care, hospital, or assisted...) When possible be specific @ -No Did you speak to anyone other than the patient for history (EMS, parent, family, police, friend...)? What history was obtained from this source @ -No Did you review nursing and triage notes (agree or disagree)? Why? @ -I reviewed and agree with nursing and triage notes Were old charts reviewed (outside hosp., previous admission, EMS record, old EKG, old radiological studies, urgent care reports/EKG's, assisted records)? Report findings @ -No old charts were reviewed Differential Diagnosis (chest pain, altered mental status, abdominal pain women, abdominal pain men, vaginal bleeding, weakness, fever, dyspnea, syncope, headache, dizziness, GI bleed, back pain, seizure, CVA, palpatations, mental health, musculoskeletal)? @ -Differential Abdominal Pain Women: Appendicitis, Cholecystitis, diverticulosis, ischemic bowel, pancreatitis, hepatitis, UTI, gastroenteritis, AAA, incarcerated hernia, bowel obstruction, constipation, inflammatory bowel, hepatitis, peptic ulcer disease, splenic infarction, perforated viscus, vulvitis, ovarian torsion, PID, kidney stone, placenta abruption, this is not meant to be an all-inclusive list EKG interpreted by me (3pts min.). @ -As above X-rays interpreted by me (1pt min.). @ -None done CT interpreted by me (1pt min.). @ -None done U/S interpreted by me (1pt. min.). @ -Gallbladder ultrasound reveals nonspecific dilated CBD with no evidence of cholelithiasis or cholecystitis. What testing was considered but not performed or refused? (CT, X-rays, U/S, labs)? Why? @ -None What meds were considered but not given or refused? Why? @ -None Did you discuss the management of the patient with other professionals (professionals i.e. , PA, VALVING MACHINE OPERATOR, lab, RT, psych nurse, manager social services, glue jointer operator, teacher, law enforcement officer, briefcase sewer)? Give summary @ -No Was smoking cessation discussed for >3mins.? @ -No Was critical care preformed (if so, how long)? @ -No Were there social determinants of health that impacted care today? How? (Homelessness, low income, unemployed, alcoholism, drug addiction, tr ansportation, low edu. Level, literacy, decrease access to med. care, long-term, rehab)? @ -No Was there de-escalation of care discussed even if they declined (Discuss DNR or withdrawal of care, Hospice)? DNR status @ -No What co-morbidities impacted this encounter? (DM, HTN, Smoking, COPD, CAD, Cancer, CVA, ARF, Chemo, Hep., AIDS, mental health diagnosis, sleep apnea, morbid obesity)? @ -None Was patient admitted / discharged? Hospital course, mention meds given and route, prescriptions, significant lab abnormalities, going to OR and other pertinent info. @ -Presents with acute on chronic gastritis symptoms. We will obtain abdominal workup. She was in agreement this plan. Vitals within acceptable limits. Given IV analgesia medications, fluids, nausea meds. Gallbladder ultrasound revealed a nonspecific dilated CBD which is borderline with no evidence of cholelithiasis or cholecystitis. Labs remarkable for mildly elevated lactic acid of 2.7 likely secondary to frequent nausea and vomiting. Reactive leukocytosis of 12.8. Hepatobiliary labs within normal limits. No concern for choledocholithiasis or cholecystitis at this time. On reevaluation, patient is asymptomatic and feels improved and would like to go home. I believe this is reasonable. She will be discharged home at this time. Strict return precautions discussed. I will provide the patient with a prescription for starter pack of ODT Zofran. I instructed the patient to follow up with their PCP in the next 1-3 days.. I explained that the patient should return to the emergency department if they experience any worsening symptoms. Strict return precautions were discussed with the patient. The patient expressed understanding of these instructions. I answered all questions that the patient had. The patient was discharged home in good condition with their prescriptions and follow up information. Undiagnosed new problem with uncertain prognosis? @ -No Drug Therapy requiring intensive monitoring for toxicity (Heparin, Nitro, Insulin, Cardizem)? @ -No Were any procedures done? @ -No Diagnosis/symptom? @ -Nausea and vomiting, dehydration Acute, or Chronic, or Acute on Chronic? @ -Acute on chronic Uncomplicated (without systemic symptoms) or Complicated (systemic symptoms)? @ -Uncomplicated Side effects of treatment? @ -No Exacerbation, Progression, or Severe Exacerbation? @ -No Poses a threat to life or bodily function? How? (Chest pain, [place], ME, pneumonia, PE, COPD, DKA, ARF, appy, cholecystitis, CVA, Diverticulitis, Homicidal, Suicidal, threat to staff... and all critical care pts) @ -Unlikely at this time - Lab Data Result diagrams: 01/15/25 23:37 01/15/25 23:37 Lab Results 01/15/25 01/15/25 01/15/25 Range/Units 23:37 23:37 23:37 WBC 12.82 H (4.50-10.00) 10*3/uL RBC 4.38 (4.10-5.20) 10*6/uL Hgb 13.4 (12.0-15.0) g/dL Hct 38.7 (37.2-46.3) % MCV 88.4 (80.0-97.0) fL MCH 30.6 (27.0-32.0) pg MCHC 34.6 (32.0-37.0) g/dL Plt Count 303 (140-440) 10*3/uL MPV 11.4 (9.5-12.2) fL Immature Gran % (Auto) 0.5 % Neutrophils % 70.4 % Lymphocytes % 20.0 % Monocytes % 7.3 % Eosinophils % 1.0 % Basophils % 0.8 % Immature Gran # 0.06 H (0.00-0.04) 10*3/uL Neutrophils # 9.03 H (1.80-7.70) 10*3/uL Lymphocytes # 2.56 (0.90-5.00) 10*3/uL Monocytes # 0.94 (0.20-1.00) 10*3/uL Eosinophils # 0.13 (0.04-0.35) 10*3/uL Basophils # 0.10 (0.00-0.10) 10*3/uL PT 11.4 (10.0-12.5) sec INR 1.0 (<1.2) APTT 20.9 L (22.0-30.0) sec Sodium 139 (137-145) mmol/L Potassium 4.2 (3.5-5.1) mmol/L Chloride 102 (98-107) mmol/L Carbon Dioxide 21 L (22-30) mmol/L Anion Gap 16 mmol/L BUN 19 H (7-17) mg/dL Creatinine 0.54 (0.52-1.04) mg/dL Est GFR (CKD-EPI)AfAm >90 (>60 ml/min/1.73 sqM) Est GFR (CKD-EPI)NonAf >90 (>60 ml/min/1.73 sqM) Glucose 146 H (74-99) mg/dL Lactic Ac Sepsis Rflx Plasma Lactic Acid [place] (0.7-2.0) mmol/L Calcium 10.6 H (8.4-10.2) mg/dL Total Bilirubin 0.8 (0.2-1.3) mg/dL AST 36 (14-36) U/L ALT 26 (4-34) U/L Alkaline Phosphatase 94 (38-126) U/L Total Protein 7.8 (6.3-8.2) g/dL Albumin 5.0 (3.5-5.0) g/dL Amylase 86 (30-110) U/L Lipase 185 (23-300) U/L 01/15/25 01/16/25 Range/Units 23:37 00:46 WBC (4.50-10.00) 10*3/uL RBC (4.10-5.20) 10*6/uL Hgb (12.0-15.0) g/dL Hct (37.2-46.3) % MCV (80.0-97.0) fL MCH (27.0-32.0) pg MCHC (32.0-37.0) g/dL Plt Count (140-440) 10*3/uL MPV (9.5-12.2) fL Immature Gran % (Auto) % Neutrophils % % Lymphocytes % % Monocytes % % Eosinophils % % Basophils % % Immature Gran # (0.00-0.04) 10*3/uL Neutrophils # (1.80-7.70) 10*3/uL Lymphocytes # (0.90-5.00) 10*3/uL Monocytes # (0.20-1.00) 10*3/uL Eosinophils # (0.04-0.35) 10*3/uL Basophils # (0.00-0.10) 10*3/uL PT (10.0-12.5) sec INR (<1.2) APTT (22.0-30.0) sec Sodium (137-145) mmol/L Potassium (3.5-5.1) mmol/L Chloride (98-107) mmol/L Carbon Dioxide (22-30) mmol/L Anion Gap mmol/L BUN (7-17) mg/dL Creatinine (0.52-1.04) mg/dL Est GFR (CKD-EPI)AfAm (>60 ml/min/1.73 sqM) Est GFR (CKD-EPI)NonAf (>60 ml/min/1.73 sqM) Glucose (74-99) mg/dL Lactic Ac Sepsis Rflx Y Plasma Lactic Acid [place]ito 2.7 H* (0.7-2.0) mmol/L Calcium (8.4-10.2) mg/dL Total Bilirubin (0.2-1.3) mg/dL AST (14-36) U/L ALT (4-34) U/L Alkaline Phosphatase (38-126) U/L Total Protein (6.3-8.2) g/dL Albumin (3.5-5.0) g/dL Amylase (30-110) U/L Lipase (23-300) U/L - EKG Data -: EKG Interpreted by Me EKG Comments: 12-lead Electrocardiogram Interpretation Note EKG was reviewed and interpreted by myself. 12-lead ECG performed at 0116 is interpreted by me as revealing normal sinus rhythm at a rate of 60 beats per minute. [place] is normal. [place] interval is 166 ms, QRS durations 109 ms, QTc is 444 ms.. There were no ST or T wave abnormalities to suggest myocardial ischemia or injury. R wave progression across the precordium was satisfactory. By my interpretation this EKG is non-diagnostic for acute ischemia. Disposition Clinical Impression: Nausea and vomiting, Dehydration Disposition: HOME SELF-CARE Condition: Good Instructions (If sedation given, give patient instructions): Acute Nausea and Vomiting (ED) Is patient prescribed a controlled substance at d/c from ED?: No Referrals: Jerry Hunt MD [Primary Care Provider] - 1-2 days Melissa Uribe MD [STAFF PHYSICIAN] - 1-2 days Time of Disposition: 02:36
[2025-01-16 02:54] VITALS: BP 161/80; PULSE 87; RESP 18
[2025-01-16] MEDS: ONDANSETRON 4 MG ODT STARTER PACK 2 TAB BTL PO STA (02:54)
[2025-01-16] MEDS: HYDROmorphone 0.5 MG/0.5 ML SYRINGE IVP STA (03:00)
== END 2025-01-16 03:09 | disposition home or self-care (01) ==
LOC: EC 23:28
DX: E86.0 Dehydration (principal); R11.2 Nausea with vomiting, unspecified; Z87.891 Personal history of nicotine dependence; Z88.5 Allergy status to narcotic agent; Z91.018 Allergy to other foods
CPT/HCPCS: 36415 ×2; 93005; 80053; 82150; 83605; 83690; 85025; 85610; 85730; 76705; 99284; 96374; 96375 ×2; 96376; 96361 ×2; J2405; J1171 ×2; S0119; J2470